=== PATIENT | male | born 1985 | race Caucasian/White ===

== ENCOUNTER 2019-06-13 16:59 | Emergency (ER) | payer SELFPAY ==
[~2019-06-13 16:59] MED LIST: ISOVUE-370 76%-LOCM 1 ML ONE
[2019-06-13] MEDS ORDERED: Ondansetron PF 4 MG/2 ML Vial ONE (17:22)
[2019-06-13 17:31] LABS: #Basophils 0.1 thou/uL (0.0-0.2); #Eosinphils 0.9 thou/uL (0.0-0.7); #Lymphocytes 3.8 thou/uL (1.20-3.40); #Monocytes 0.8 thou/uL (0.11-0.59); %Basophils 1.1 % (0.0-1.0); %Lymphocytes 36.2 % (21.0-51.0); %Monocytes 7.4 % (0.0-10.0); %Neutrophils 47.3 % (42.0-75.0); Hemoglobin 15.6 g/dL (14.0-18.0); Mean Corpuscular HGB CONC 34.3 g/dL (32.0-36.0); Mean Corpuscular Hemoglobin 31.9 pg (27.0-31.0); Mean Platelet Volume 7.8 fL (7.4-10.4); Platelet Count 236 thou/uL (130-400); RBC Distribution Width 12.3 % (11.5-14.5); White Blood Cell (WBC) Count 10.6 thou/uL (4.8-10.8)
[2019-06-13] MEDS ORDERED: Morphine 4 MG/ML VIAL ONE ×2 (17:31→23:05)
--- NOTE | 2019-06-13 17:33 | RAD ---
RADIOGRAPH CHEST 1 VIEW: DATE: 06/13/2019 HISTORY: 33-year-old male with chest pain, palpitations, and dyspnea. FINDINGS: There are no airspace densities, pulmonary edema, pneumothorax, or cardiomegaly. The lateral costophr enic angles are sharp. IMPRESSION: No acute cardiopulmonary findings.
--- NOTE | 2019-06-13 17:49 | CT ---
CT ANGIOGRAM THORAX WITH CONTRAST: (CTA pulmonary angiogram) DATE: 06/13/2019 HISTORY: 33-year-old male with chest pain and dyspnea TECHNIQUE: IV injection of iodinated contrast. Scan acquisition timing attempted to coincide with iodinated contrast bolus reaching maximal density in pulmonary arteries. 3-D MIP reconstructions. FINDINGS: Pulmonary thromboembolism: None. Lungs: No consolidation or edema. Pneumothorax: None. Pleural effusion: None. Thoracic aorta: Ectasia, especially of ascending aorta, with caliber of 4.5 cm, not typical for age 3 5 years. No IV contrast material in the thoracic aorta, and therefore unable to evaluate for thoracic aortic d issection. No cardiomegaly, mediastinal lymphadenopathy, or hilar lymphadenopathy. Trachea and major bronchi: Patent and clear. IMPRESSION: 1. No pulmonary thromboembolism. 2. Evidence for chronic hypertension: Ectasia of ascending thoracic aorta.
[2019-06-13 17:51] LABS: ALT (SGPT) 29 U/L (8-55); AST (SGOT) 18 U/L (5-34); Acetaminophen Less than 6.0 mcg/mL (10.0-30.0); Albumin 4.4 g/dL (3.5-5.0); Alcohol Less than 10 mg/dL (Less than 10); Alkaline Phosphatase 82 U/L (40-150); Anion Gap 19 mmol/L (10-20); BUN (Urea Nitrogen) 9 mg/dL (8.9-20.6); Bilirubin, Total 0.5 mg/dL (0.2-1.2); CK (CPK) 132 U/L (30-200); Calc. Creatinine Clearance 0 mL/min (70-130); Calcium 9.3 mg/dL (7.8-10.44); Carbon Dioxide 16 mmol/L (22-29); Chloride 109 mmol/L (98-107); Estimated GFR-MDRD 63; Globulin 1.9 g/dL (2.4-3.5); Glucose 127 mg/dL (70-105); Lipase 26 U/L (8-78); Potassium 3.8 mmol/L (3.5-5.1); Protein, Total 6.3 g/dL (6.0-8.3); Salicylate Less than 8.0 mg/dL (15.0-30.0); Sodium 140 mmol/L (136-145)
[2019-06-13] MEDS ORDERED: Lorazepam 2 MG/ML VIAL ONE (18:09)
[2019-06-13 21:07] LABS: Troponin I 0.012 ng/mL (< 0.028)
[2019-06-13] MEDS ORDERED: Morphine 2 MG/ML SYRINGE ONE (21:14)
[2019-06-13] MEDS ORDERED: Mag-Al 1200 mg/1200 mg/30 ML UDCUP ONE ×2 (21:24→21:25)
[2019-06-13] MEDS ORDERED: Lidocaine Viscous Sol 2% 15 ml UD Cup ONE ×2 (21:24→21:25)
[2019-06-13] MEDS ORDERED: Pantoprazole 40 MG VIAL ONE (21:35)
[2019-06-13] MEDS ORDERED: Esmolol 2,500 MG/250 ML 250 ML ONE ×2 (22:41→23:50)
[2019-06-13] MEDS ORDERED: Nitroglycerin 50 MG/250 ML BOT 250 ML ONE (22:41)
--- NOTE | 2019-06-13 22:49 | CT ---
CT abdomen with contrast CT pelvis with contrast: DATE: 06/13/2019 Time: 10:22 PM HISTORY: 33-year-old male with severe abdominal pain. Dr. Cordova reported the acute aortic dissection and left renal infarction by telephone to Nikole cerna of the emergency Department at 10:38 PM on 06/13/2019 TECHNIQUE: IV injection of iodinated contrast. Arterial bolus chasing technique. Scan acquisition from top of aortic arch to iliac crests. 3-D MIP reconstructions. FINDINGS: There is dissection of the ascending thoracic aorta. Aortic arch is not included on the images. There is dissection of the descending thoracic aorta. It reaches the junction between the thoracic and abdominal aorta, terminating just to the right of the origin of the celiac and superior mesenteric ar teries. There is mild atherosclerosis, but no aneurysm or dissection, in the abdominal aorta otherwise, or in the common and external and internal iliac arteries. There are very extensive low density hypoperfusion lesions throughout the left renal upper, mid, and lower poles, involving the majority of the volume of the left renal parenchyma consistent with acute infarction. No hydronephrosis. Unremarkable liver, pancreas, or spleen. No adrenal nodule on th e right. Adrenal thickening on the left. No ascites or pneumoperitoneum. No small bowel dilation. The urinary bladder is filled with IV contrast from CT pulmonary angiogram earlier today. The bladder appears normal. No colonic diverticulitis. No abscess within the abdominal cavity or pelvic cavity. Distended gallbladder. IMPRESSION: 1. Acute aortic dissection, Andrew type A, DeBakey type I. 2. Acute infarction of the majority of the volume of the left kidney, presumably due to thromboemboli sm due to the dissection.
[2019-06-13] MEDS ORDERED: niCARdipine 20MG In NaCl 20 MG/200 ML BAG ONE (23:47)
== END 2019-06-14 00:14 | disposition short-term general hospital (02) ==
LOC: ERS 16:59
DX: I71.01 Dissection of thoracic aorta (principal); N28.0 Ischemia and infarction of kidney; I10 Essential (primary) hypertension; F32.9 Major depressive disorder, single episode, unspecified
CPT/HCPCS: 36415; 71045; 71275; 74177; 80053; 80307; 82550; 83690; 83880; 84484; 85025; 93005; 94760; 96361; 96365; 96368; 96372; 96375; 96376; C9113; J0500; J2060; J2270; J2405; Q9966

== ENCOUNTER 2019-08-01 08:54 | Emergency (ER) | payer SELFPAY | END 2019-08-01 11:11 | disposition home or self-care (01) | LOC: ERS 08:54 | DX: Z43.1 Encounter for attention to gastrostomy (principal); E78.5 Hyperlipidemia, unspecified; I10 Essential (primary) hypertension; F17.210 Nicotine dependence, cigarettes, uncomplicated; Z79.899 Other long term (current) drug therapy | CPT/HCPCS: 99282 ==

== ENCOUNTER 2020-07-22 08:38 | Outpatient (CLI) | payer OTHER ==
--- NOTE | 2020-07-22 09:25 | CT ---
CT OF THE ABDOMEN AND PELVIS WITH IV CONTRAST INDICATION: History of ileostomy and aortic dissection COMPARISON: CTA of the chest dated June 13, [address] the abdomen and pelvis with contrast date d June 13, 2019 FINDINGS: ABDOMEN: Lung bases: The lung bases are clear. There is been interval placement of an aortic endograft within the distal thoracic aortic dissection. The endograft extends through the abdominal aorta and into both common iliac arteries. The suspected false lumen of the descending thoracic aorta is now aneurys mal measuring 4.5 cm where previously the descending thoracic aorta measured 3.3 cm. The suprarenal abdominal aorta also containing opacification of the false lumen is slightly more aneurysm measuring 3.6 cm were previously this measured 2.9 cm. The aorta at the renal artery measures 3.5 cm. The false lumen remains opacified within the distal abdominal aorta measuring 2.8 cm. Liver: Small cysts are seen within the right hepatic lobe. Gallbladder: Surgically absent Pancreas: Normal. Adrenal glands: Normal. Spleen: Normal. Kidneys and ureters: There is a lobulated and atrophic appearance of the left kidney consistent with evolutionary changes from multiple segmental infarcts to the left kidney seen on the prior exam. The right kidney has a normal CT appearance. Vasculature: As above Lymph nodes:No lymphadenopathy. Free fluid in abdomen:No free fluid is evident. PELVIS: Small and large bowel: There has been an interval partial colectomy with a long Mahmood's pouch proje cting up to the level of the distal transverse colon. There is a right upper quadrant abdominal wall ileostomy with small bowel seen within a parastomal hernia. There is no evidence of obstruction. Appendix:Surgically absent Bladder: Normal. Rectal and perirectal soft tissues:Normal. Reproductive structures: Normal. Free fluid in pelvis: No free fluid is evident. Lymphadenopathy pelvis: No lymphadenopathy is evident. Osseous structures: No acute osseous abnormality. No destructive osteolytic or osteoblastic lesion i s identified. Soft tissues:Normal. IMPRESSION: 1. Interval placement of an aortic endograft stent, seen within the distal thoracic aorta through the common iliac arteries. 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 Referral of this finding to vas cular surgery is recommended. 2. Interval partial colectomy and establishment of a right upper quadrant end ileostomy. There is a p arastomal hernia containing unobstructed loops of small bowel. 3. Evolutionary changes involving the multiple segmental infarct involving the left kidney. The left kidney is now atrophic with a lobulated contour.
[2020-07-22] MEDS ORDERED: Iopamidol-370 76% 500 ML 1 ML ONE (11:30)
== END 2020-07-22 08:39 | disposition home or self-care (01) ==
LOC: BICCT 08:38
PROVIDERS: ATTEND Specialist
DX: Z48.815 Encounter for surgical aftercare following surgery on the digestive system (principal); Z93.2 Ileostomy status
CPT/HCPCS: 74177; Q9967

== ENCOUNTER 2020-12-01 11:45 | Inpatient (IN) | payer OTHER ==
[2020-12-06] MEDS ORDERED: Ketorolac Tromethamine 30 MG/ML VIAL ONE (08:01)
[2020-12-06] MEDS ORDERED: cefOXitin Sodium/Dextrose 2 GM/50 ML BAG ONE (08:02)
[2020-12-06] MEDS ORDERED: Acetaminophen 500 MG TAB ONE ×2 (08:02)
[2020-12-06] MEDS ORDERED: Dexamethasone 4 mg/ml Vial ONE (08:10)
[2020-12-06] MEDS ORDERED: Midazolam HCl 2 mg/2 ml Vial ONE (08:10)
[2020-12-06] MEDS ORDERED: Fentanyl 100 MCG/2 ML VIAL ONE (08:10)
[2020-12-06] MEDS ORDERED: Acetaminophen 500 MG TAB PO PRN (09:31)
[2020-12-06] MEDS ORDERED: Hydrocerin (Eucerin) Cream 120 gm Jar TOP PRN (09:45)
[2020-12-06] MEDS ORDERED: Ondansetron PF 4 MG/2 ML Vial IVP PRN (09:45)
[2020-12-06] MEDS ORDERED: diphenhydrAMINE 50 MG/ML VIAL IM PRN (09:45)
[2020-12-06] MEDS ORDERED: diphenhydrAMINE 25 MG CAP PO PRN (09:45)
[2020-12-06] MEDS ORDERED: Promethazine HCl 25 MG/ML VIAL IM PRN ×3 (09:45→14:39)
[2020-12-06] MEDS ORDERED: XYLOCAINE 2%-EPI 1:100,000 20 ML VIAL ONE (09:45)
[2020-12-06] MEDS ORDERED: Zolpidem Tartrate 5 MG TAB PO PRN (09:45)
[2020-12-06] MEDS ORDERED: Ketorolac Tromethamine 30 MG/ML VIAL IVP PRN (09:45)
[2020-12-06] MEDS ORDERED: Bupivacaine 0.25% 10 ML VIAL EPIDURAL PRN (09:45)
[2020-12-06] MEDS ORDERED: Promethazine HCl 25 MG SUPP PR PRN (09:45)
[2020-12-06] MEDS ORDERED: Naloxone HCl 0.4 mg/ml Vial IV PRN (09:45)
[2020-12-06] MEDS ORDERED: HYDROcodone/Acetaminophen 5/325 mg Tablet PO PRN (09:45)
[2020-12-06] MEDS ORDERED: Naloxone HCl 0.4 mg/ml Vial IVP PRN (09:45)
[2020-12-06] MEDS ORDERED: traMADol HCl 50 MG TAB PO PRN (09:45)
[2020-12-06] MEDS ORDERED: Fentanyl 250 MCG/5 ML VIAL ONE (09:46)
[2020-12-06] MEDS ORDERED: Lidocaine 2% Jelly 5 ML TUBE ONE (10:02)
[2020-12-06] MEDS ORDERED: Dexamethasone 20 MG/5 ML VIAL ONE (10:58)
[2020-12-06] MEDS ORDERED: Ondansetron PF 4 MG/2 ML Vial ONE (10:58)
[2020-12-06] MEDS ORDERED: Glycopyrrolate 0.2 MG/ML 5 ML SYRINGE ONE (10:58)
[2020-12-06] MEDS ORDERED: Lidocaine 1.5% w/Epi 1:200K 30 ML VIAL (Epid Use) ONE (10:58)
[2020-12-06] MEDS ORDERED: Succinylcholine 200 MG/10 ml SYRINGE FS ONE (10:58)
[2020-12-06] MEDS ORDERED: PROPOFOL 200 MG/20 ML VIAL ONE (10:58)
[2020-12-06] MEDS ORDERED: Lidocaine 1% PF 5 ML VIAL ONE (10:58)
[2020-12-06] MEDS ORDERED: ceFOXitin 1 GM VIAL ONE (11:53)
[2020-12-06] MEDS ORDERED: Ropivacaine 0.2% HCl/PF 20 ML ONE (12:18)
[2020-12-06] MEDS ORDERED: Meperidine HCl/PF 25 MG/ML VIAL SLOW IVP PRN (13:54)
[2020-12-06] MEDS ORDERED: Promethazine HCl 25 MG/ML VIAL SLOW IVP PRN (13:54)
[2020-12-06] MEDS ORDERED: Ondansetron HCl/PF 4 MG/2 ML Vial IVP PRN (13:54)
[2020-12-06] MEDS ORDERED: Promethazine HCl 25 MG/ML VIAL ONE (14:09)
[2020-12-06] MEDS ORDERED: AFRIN NASAL MIST 15 ML BOT ONE (14:13)
[2020-12-06] MEDS ORDERED: D5 1/2 NS w/20 mEq KCL 1,000 ML ONE (14:38)
[2020-12-06] MEDS ORDERED: hydrALAZINE 20 MG/ML VIAL SLOW IVP PRN (14:39)
[2020-12-06] MEDS: D5 1/2 NS w/20 mEq KCL 1,000 ML IV SCH ×2 (15:36→23:45)
[2020-12-06] MEDS ORDERED: Oxymetazoline HCl 0.05% (30 ML BOT) NS PRN (15:37)
[2020-12-06] MEDS ORDERED: Sodium Chloride 0.9% 1,000 ML IV SCH (20:00)
[2020-12-06 20:18] LABS: Hemoglobin 14.3 g/dL (14.0-18.0); Mean Corpuscular HGB CONC 34.1 g/dL (32.0-36.0); Mean Corpuscular Hemoglobin 31.6 pg (27.0-31.0); Mean Corpuscular Volume 92.8 fL (78.0-98.0); Mean Platelet Volume 7.4 fL (7.4-10.4); Platelet Count 342 thou/uL (130-400); RBC Distribution Width 12.2 % (11.5-14.5); Red Blood Cell (RBC) Count 4.53 mill/uL (4.70-6.10); White Blood Cell (WBC) Count 18.7 thou/uL (4.8-10.8)
[2020-12-06 20:33] LABS: Band 23 % (5-11); Lymphocytes 1 % (21-51); MDiff Complete? YES; Monocytes 7 % (0-10); Neutrophil 69 % (42-75); Platelet Morphology Comment Appears Adequate; RBC Morphology Normal
[2020-12-06 20:36] LABS: Anion Gap 14 mmol/L (10-20); BUN (Urea Nitrogen) 19 mg/dL (8.9-20.6); Calc. Creatinine Clearance 117 mL/min (70-130); Calcium 8.3 mg/dL (7.8-10.44); Carbon Dioxide 19 mmol/L (22-29); Chloride 108 mmol/L (98-107); Glucose 170 mg/dL (70-105); Potassium 5.1 mmol/L (3.5-5.1); Sodium 136 mmol/L (136-145)
[2020-12-06] MEDS: Enoxaparin Sodium 40 MG/0.4 ML SYRINGE SC SCH (20:54)
[2020-12-06] MEDS: Atorvastatin Calcium 10 MG TAB PO SCH (20:55)
[2020-12-06] MEDS: Famotidine/PF 20 mg/2ml Vial SLOW IVP SCH (20:55)
[2020-12-06] MEDS: Carvedilol 25 MG TAB PO SCH (20:55)
[2020-12-06] MEDS ORDERED: Lactated Ringer's 1,000 ML IV SCH (21:15)
[2020-12-06] MEDS: Famotidine 20 MG TAB PO SCH (23:42)
--- NOTE | 2020-12-07 00:29 | OP ---
DATE OF PROCEDURE: 12/06/2020 PREOPERATIVE DIAGNOSES: Undesired ileostomy, very large peristomal hernia, morbid obesity. POSTOPERATIVE DIAGNOSES: Undesired ileostomy, very large peristomal hernia, morbid obesity with extensive intraabdominal adhesions. OPERATION PERFORMED: Exploratory laparotomy with extensive lysis of adhesions (requiring over an hour), reversal of ileostomy with new ileocolostomy creation in the left upper abdomen and short-segment removal of both small intestine and colon, difficult layered repair of a large peristomal hernia in the right abdomen with placement of a subcutaneous drain, placement of a final drain in this midline incision and closure of an incisional periumbilical hernia during closure of the midline wound. INDICATIONS: The patient is an obese 35-year-old white male. He has had a right-sided loop ileostomy from a surgery about a year ago when he had an aortic dissection which required emergency abdominal surgery as well. He is returned to the operating room at this time for reversal of his ileostomy and repair of the giant peristomal hernia in his right abdomen. CT scan documents that most of his small intestine protruded into the peristomal hernia. DESCRIPTION OF OPERATION: Informed consent was obtained. Patient was taken to the operating room, where general endotracheal anesthesia was obtained with patient in supine position. An epidural catheter had been placed preoperatively per Anesthesia. Abdomen was trimmed of hair. The ostomy was closed in a transverse fashion with a running locking suture of 0 silk. The abdomen was then prepped with ChloraPrep and draped in sterile fashion. A midline abdominal incision was created and the prior widened scar was excised. Dissection was carried down into the abdominal cavity with electrocautery. There was noted to be a substantial hernia underlying the umbilicus measuring about 2.5 to 3 cm in diameter. There were extensive adhesions to the anterior abdominal wall bilaterally. I took great effort to very carefully dissect all the adhesions off the anterior abdominal wall. These included both omental and small bowel adhesions. After I had dissected most of these, I turned my attention to the ileostomy. I created an elliptical incision around this and carefully dissected this small bowel away from the skin and subcutaneous tissue. As mentioned, there was a huge peristomal hernia. There were extensive adhesions within this hernia sac. All of these adhesions were carefully mobilized well. I eventually mobilized all of the small bowel such that I could run the small bowel from the ligament of Treitz to the former ileostomy site. The ileostomy site had been a double-lumen ostomy and the distal aspect of the stoma appeared to have been closed several centimeters distal. When this was fully dissected, the hernia sac of the peristomal hernia measured about 13 cm transversely by about 12 cm in a sagittal plane. Attention was then turned to the left abdomen. I was able to identify the Prolene sutures marking the stapled end of the divided colon with unaffected long Martin's pouch in the right upper quadrant. This appeared to likely be distal transverse colon. I mobilized the distal transverse colon as well as what remained of the splenic flexure and the left colon. This segment of colon was relatively small and decompressed. It appeared to be filled with thickened inspissated stool. I created a double-stapled anastomosis in a [id number] fashion between the small bowel just proximal to the ileostomy and the colon just distal to the staple line. The second fire of the stapler closed the defect and divided these short segments of small bowel and colon that were removed. The anastomosis was buttressed with several interrupted sutures of 3-0 silk. As the mesenteric defect was huge, I made no attempt to close this. The instruments used while the bowel was open had been segregated and were passed off the field. The abdominal cavity was then irrigated with 3 L of warm saline and all irrigant was aspirated. Attention was turned to the peristomal hernia site. I was able to dissect the muscular tissue in 2 layers. It appeared the ostomy opening was likely primarily through the rectus muscle. I closed the posterior layer using a running suture of looped #1 PDS. I then closed the anterior layer using a separate running suture of PDS. The defect was closed in a vertical fashion on both layers. I then excised the entire hernia sac. Finally, I placed a #19 round fluted drain within the wound, which I brought out inferiorly and secured with 3-0 nylon suture. I opened the skin incisions further as the skin was very thinned out overlying much of the hernia sac and especially laterally. I then closed the subcutaneous fatty tissue with a running suture of 3-0 Vicryl and approximated the skin edges with skin martha. Finally, attention was turned to the midline wound. The fascial edges were dissected somewhat, especially in the area of the prior periumbilical hernia. The fascia was closed with a running suture of looped #1 PDS, started from the top and the bottom and tied in the middle. Seprafilm had been placed underneath the fascia. Due to the very thick layer of subcutaneous fat, I placed a #19 round fluted drain, which I brought out inferiorly to the left and secured with a 3-0 nylon suture. The remainder of the wound was closed with a layer of running 3-0 Vicryl followed by skin martha. Dry gauze dressing was placed over both incisions as well as the drain exit sites. There were no complications. Blood loss had been minimal. The patient tolerated the procedure well and was taken in stable condition to the recovery room. Job ID: [id number]
[2020-12-07] MEDS: fentaNYL Citrate/PF 500 MCG, Bupivacaine 10 ML in Sodium Chloride 0.9% 80 ML EPIDURAL SCH ×2 (02:32→15:51)
[2020-12-07 05:35] LABS: #Lymphocytes 1.1 thou/uL (1.20-3.40); #Monocytes 1.5 thou/uL (0.11-0.59); #Neutrophils 11.9 thou/uL (1.40-6.50); %Basophils 0.1 % (0.0-1.0); %Eosinophils 0.1 % (0.0-10.0); %Lymphocytes 7.7 % (21.0-51.0); %Monocytes 10.4 % (0.0-10.0); %Neutrophils 81.7 % (42.0-75.0); Hemoglobin 11.4 g/dL (14.0-18.0); Mean Corpuscular Hemoglobin 29.3 pg (27.0-31.0); Mean Corpuscular Volume 94.4 fL (78.0-98.0); Mean Platelet Volume 7.7 fL (7.4-10.4); Platelet Count 268 thou/uL (130-400); RBC Distribution Width 12.1 % (11.5-14.5); Red Blood Cell (RBC) Count 3.88 mill/uL (4.70-6.10); White Blood Cell (WBC) Count 14.6 thou/uL (4.8-10.8)
[2020-12-07 05:50] LABS: Anion Gap 13 mmol/L (10-20); BUN (Urea Nitrogen) 27 mg/dL (8.9-20.6); Calc. Creatinine Clearance 73 mL/min (70-130); Calcium 8.1 mg/dL (7.8-10.44); Carbon Dioxide 19 mmol/L (22-29); Chloride 107 mmol/L (98-107); Glucose 138 mg/dL (70-105); Potassium 5.5 mmol/L (3.5-5.1); Sodium 133 mmol/L (136-145)
[2020-12-07] MEDS ORDERED: Dextrose 5%-Lactated Ringers 1,000 ML IV SCH (06:15)
[2020-12-07] MEDS ORDERED: Lactated Ringer's 1,000 ML IV SCH (06:15)
[2020-12-07] MEDS: D5 1/2 NS w/20 mEq KCL 1,000 ML IV SCH (06:32)
--- NOTE | 2020-12-07 08:06 | PDOC.GSPN ---
Surgery Progress Note: Subj - Subjective Narrative: Mr. Carrillo is a 35 year old male who is POD #1 from open ileostomy reversal w/ new ileocolostomy creation and repair of large peristomal hernia. The patient has had the R sided loop ileostomy for about 1 year now following emergent abdominal surgery for aortic dissection and requested reversal of the ileostomy. Overnight, the patient reports experiencing slight dizziness and tachycarida. His pulse went up to 110 and his BP went down to 82/54 at one point last night. He was given 3 boluses of NS. His BP today has improved to 98/63 with pulse 87. The patient denies any fever, chills, nausea, vomiting, SOB, or chest pain. He reports his abdominal pain is tolerable. He is ambulating in the hallways. Of note, the patient continues to experience pruritus. He has not yet received the eucerin cream. Surgery Progress Note: Obj - Vital signs Vital signs: Vital Signs - Most Recent Temp Pulse Resp BP Pulse Ox 98.4 F 87 16 98/63 100 12/07/20 03:08 12/07/20 06:17 12/07/20 03:08 12/07/20 06:17 12/07/20 05:00 - Physical Exam General: no distress Cardiovascular: regular rate and rhythm Respiratory: clear to auscultation, normal expansion, normal respiratory effort Abdomen: soft, positive bowel sounds, appropriately tender Wound: dressing clean,dry,intact, drainage (BANDAR drain serosanguinous output overnight - L: 40 mL, R: 250 mL) Surgery Progress Note: Results - Labs Result Diagrams: 12/07/20 05:03 12/07/20 05:03 Lab results: Laboratory Results - last 12 hr 12/06/20 12/06/20 12/07/20 19:53 19:53 05:03 WBC 18.7 H RBC 4.53 L Hgb 14.3 Hct 42.0 MCV 92.8 MCH 31.6 H MCHC 34.1 RDW 12.2 Plt Count 342 MPV 7.4 Neutrophils % Neutrophils % (Manual) 69 Band Neuts % (Manual) 23 H Lymphocytes % Lymphocytes % (Manual) 1 L Monocytes % Monocytes % (Manual) 7 Eosinophils % Basophils % Neutrophils # Lymphocytes # Not Reportable Monocytes # Eosinophils # Basophils # Plt Morphology Comment Appears Adequate RBC Morph Comment Normal Sodium 136 133 L Potassium 5.1 5.5 H Chloride 108 H 107 Carbon Dioxide 19 L 19 L Anion Gap 14 13 BUN 19 27 H Creatinine 1.47 H 2.36 H Estimated GFR (MDRD) 54 31 Glucose 170 H 138 H Calcium 8.3 8.1 12/07/20 05:03 WBC 14.6 H RBC 3.88 L Hgb 11.4 L Hct 36.6 L MCV 94.4 MCH 29.3 MCHC 31.0 L RDW 12.1 Plt Count 268 MPV 7.7 Neutrophils % 81.7 H Neutrophils % (Manual) Band Neuts % (Manual) Lymphocytes % 7.7 L Lymphocytes % (Manual) Monocytes % 10.4 H Monocytes % (Manual) Eosinophils % 0.1 Basophils % 0.1 Neutrophils # 11.9 H Lymphocytes # 1.1 L Monocytes # 1.5 H Eosinophils # 0.0 Basophils # 0.0 Plt Morphology Comment RBC Morph Comment Sodium Potassium Chloride Carbon Dioxide Anion Gap BUN Creatinine Estimated GFR (MDRD) Glucose Calcium Surgery Progress Note: A/P - Problem (1) Parastomal hernia Current Visit: Yes Code(s): K43.5 - PARASTOMAL HERNIA WITHOUT OBSTRUCTION OR GANGRENE Status: Acute (2) Status post reversal of ileostomy Current Visit: Yes Code(s): Z98.890 - OTHER SPECIFIED POSTPROCEDURAL STATES Status: Acute - Plan Plan: Mr. Carrillo is a 35 year old M who is POD #1 from open ileostomy reversal and repair of large peristomal hernia. The patient was tachycardic and hypotensive overnight. His vitals have improved after 3 boluses NS. He remains on maintenance fluid of 150 mL/hr. He reports he is doing well overall and states his abdominal pain is currently manageable. He has not yet had bowel movement or flatus. Of note, he has had diminished urine output overnight. He is ambulating well with no issues. He denies any fever, chills, n/v, SOB, or chest pain. He does continue to experience pruritus Plan: 1. Strict I/Os 2. Notify if urine output <30 mL/hr 3. Consider going up on maintenance fluids to 200 mL/hr 4. Encourage ambulation and use of incentive spirometry 5. D/C nasal cannula 6. Hold home BP meds this am 7. Eucerin cream has been ordered, pharmacy contacted 8. Remain NPO
[2020-12-07] MEDS: Aspirin 81 mg Enteric Coated Tablet PO SCH (08:10)
[2020-12-07] MEDS: Famotidine/PF 20 mg/2ml Vial SLOW IVP SCH ×2 (08:10→20:12)
[2020-12-07] MEDS: Dextrose 5%-Lactated Ringers 1,000 ML IV SCH ×4 (08:19→22:25)
[2020-12-07] MEDS: Famotidine 20 MG TAB PO SCH ×2 (08:19→20:12)
[2020-12-07] MEDS: NIFEdipine XL 30 MG TAB PO SCH (08:19)
[2020-12-07] MEDS: Carvedilol 25 MG TAB PO SCH ×2 (08:19→20:12)
--- NOTE | 2020-12-07 12:55 | PQF ---
CLINICAL DOCUMENTATION CLARIFICATION FORM: Dear Dr. DENISE GALLEGOS Date: 12-07-20 Please exercise your independent, professional judgment in responding to the clarification form. Clinical indicators are provided on the bottom of this form for your review. Please check appropriate box(es): [ x ] Acute Renal Failure (ARF) / Acute Kidney Injury (BRIANNA) [ ] Insignificant Lab Values [ ] Other diagnosis [ ] Unable to determine In addition, please specify: Present on Admission (POA): [ ] Yes [ x] No [ ] Unable to determine For continuity of documentation, please document condition throughout progress notes and discharge summary. Thank You. To be completed by CDI/Coding staff for physician review: CLINICAL INDICATORS - SIGNS / SYMPTOMS / LABS / RESULTS AND LOCATION IN MR: GFR: 12-06-20: 54 12-07-20: 31 CREATININE: 12-06-20: 1.47 12-07-20: 2.36 BUN: 12-06-20: 19 12-07-20: 27 RISK FACTORS / RESULTS AND LOCATION IN MR: MAR: 12-06-20: COREG, PROCARDIA, SURGERY EXPLORATORY LAPAROTOMY WITH EXTENSIVE LYSIS OF ADHESIONS, REVERSAL OF ILEOSTOMY WITH NEW ILEOCOLOSTOMY CREATION IN THE L UPPER ABDOMEN, DIFFICULT LAYERED REPAIR OF A LARGE PERISTOMAL HERNIA IN THE RIGHT ABDOMEN WITH PLACEMENT OF A SQ DRAIN, PLACEMENT OF A FINAL DRAIN IN THE MIDLINE INCISION AND CLOSURE OF AN INCISIONAL PERIUMBILICAL HERNIA DURING CLOSURE OF THE MIDLINE WOUND. TREATMENTS / RESULTS AND LOCATION IN MR: MAR: 12-07-20: DEXTROSE 5%-LACTATED RINGERS IVF, 12-06-20: D5 W KCL [employer] Guidelines for CKD Staging Stage I Kidney damage with normal or increased GFR GFR > 90 Stage II Kidney damage with mildly decreased GFR GFR 60-89 Stage III Kidney damage with moderately decreased GFR GFR 30-59 Stage IV Kidney damage with severely decreased GFR GFR 16-29 Stage V Kidney failure GFR<15 ESRD End Stage Renal Disease On dialysis Acute Renal Failure/Acute Kidney Failure defined as: Increases in SCr by (>) 0.3 mg/dl within 48 hours OR- Increases in SCr by (>) 1.5 times baseline, known or presumed to have occurred within the prior 7 days OR- Urine volume < 0.5 ml/kg/hour for 6 hours (KDIGO supplement 2012 for RIFLE/ERNIE criteria) CDS Signature: Christina Reyes Phone #: [phone] Date: 12-07-20 This is a permanent part of the Medical Record MTDD
[2020-12-07 12:56] LABS: #Lymphocytes 1.4 thou/uL (1.20-3.40); #Monocytes 1.6 thou/uL (0.11-0.59); %Basophils 0.4 % (0.0-1.0); %Eosinophils 0.1 % (0.0-10.0); %Lymphocytes 10.4 % (21.0-51.0); %Monocytes 12.6 % (0.0-10.0); %Neutrophils 76.6 % (42.0-75.0); Hemoglobin 10.2 g/dL (14.0-18.0); Mean Corpuscular HGB CONC 34.5 g/dL (32.0-36.0); Mean Corpuscular Hemoglobin 32.3 pg (27.0-31.0); Mean Corpuscular Volume 93.6 fL (78.0-98.0); Mean Platelet Volume 7.3 fL (7.4-10.4); Platelet Count 226 thou/uL (130-400); RBC Distribution Width 12.1 % (11.5-14.5); Red Blood Cell (RBC) Count 3.16 mill/uL (4.70-6.10); White Blood Cell (WBC) Count 13.1 thou/uL (4.8-10.8)
[2020-12-07 13:16] LABS: Anion Gap 13 mmol/L (10-20); BUN (Urea Nitrogen) 28 mg/dL (8.9-20.6); Calc. Creatinine Clearance 83 mL/min (70-130); Carbon Dioxide 19 mmol/L (22-29); Chloride 107 mmol/L (98-107); Glucose 114 mg/dL (70-105); Potassium 4.8 mmol/L (3.5-5.1); Sodium 134 mmol/L (136-145)
[2020-12-07] MEDS: traMADol HCl 50 MG TAB PO PRN (17:15)
[2020-12-07] MEDS: Enoxaparin Sodium 40 MG/0.4 ML SYRINGE SC SCH (20:11)
[2020-12-07] MEDS: Atorvastatin Calcium 10 MG TAB PO SCH (20:12)
[2020-12-07] MEDS: HYDROcodone/Acetaminophen 5/325 mg Tablet PO PRN (22:26)
[2020-12-08] MEDS: fentaNYL Citrate/PF 500 MCG, Bupivacaine 10 ML in Sodium Chloride 0.9% 80 ML EPIDURAL SCH ×2 (03:56→16:28)
[2020-12-08] MEDS: Dextrose 5%-Lactated Ringers 1,000 ML IV SCH (03:56)
[2020-12-08 05:51] LABS: #Eosinphils 0.1 thou/uL (0.0-0.7); #Monocytes 1.2 thou/uL (0.11-0.59); #Neutrophils 9.8 thou/uL (1.40-6.50); %Basophils 0.4 % (0.0-1.0); %Eosinophils 0.7 % (0.0-10.0); %Lymphocytes 8.2 % (21.0-51.0); %Monocytes 9.6 % (0.0-10.0); %Neutrophils 81.1 % (42.0-75.0); Mean Corpuscular HGB CONC 33.8 g/dL (32.0-36.0); Mean Corpuscular Hemoglobin 31.9 pg (27.0-31.0); Mean Corpuscular Volume 94.2 fL (78.0-98.0); Mean Platelet Volume 7.8 fL (7.4-10.4); Platelet Count 209 thou/uL (130-400); Red Blood Cell (RBC) Count 2.81 mill/uL (4.70-6.10); White Blood Cell (WBC) Count 12.1 thou/uL (4.8-10.8)
[2020-12-08 06:14] LABS: Anion Gap 11 mmol/L (10-20); BUN (Urea Nitrogen) 26 mg/dL (8.9-20.6); Calc. Creatinine Clearance 109 mL/min (70-130); Calcium 8.3 mg/dL (7.8-10.44); Carbon Dioxide 20 mmol/L (22-29); Chloride 105 mmol/L (98-107); Glucose 117 mg/dL (70-105); Potassium 4.4 mmol/L (3.5-5.1); Sodium 132 mmol/L (136-145)
[2020-12-08] MEDS ORDERED: Sodium Chloride 0.9% 1,000 ML IV SCH (06:30)
--- NOTE | 2020-12-08 06:39 | PDOC.GSPN ---
Surgery Progress Note: Subj - Subjective Narrative: 35 y.o male POD #2 s/p reversal of ileostomy with new ileocolostomy creation, repair of peristomal hernia and adhesion lysis. Patient was awake and reported feeling well this morning, his pain is 4/10 and localized to the midline incision and R/L sides of the abdomen. Overnight, he experienced 1 episode of dizziness when ambulating that improved with sitting. Denies syncope. He also used nasal cannula due to low O2 sats. He is NPO but sips water (630 mL in last 24 hours). His Cruz was pulled this morning, but he produced 850 mL in 24 hours (35 cc/hr). Drains are producing serosanguinous fluid. He is ambulating with the walking program and several times on his own without difficulty. In fact, he endorses improvement in pain level with ambulation. Denies gas or stool per rectum. Denies SOB, chest pain, n/v, subj. fever/chills. Surgery Progress Note: Obj - Vital signs Vital signs: Vital Signs - Most Recent Temp Pulse Resp BP Pulse Ox 98.1 F 93 18 105/45 L 94 L 12/08/20 03:36 12/08/20 03:36 12/08/20 03:36 12/08/20 03:36 12/08/20 03:36 Afebrile. Hypotensive overnight @ 2230: 95/59, and again this mornin/45. Tachycardic overnight @ 2230: 104 bpm. Used NC from 1999 to 399 this morn due to O2 sats ~ 92% - Physical Exam General: no distress, moderate pain Cardiovascular: regular rate and rhythm Respiratory: clear to auscultation, normal respiratory effort Abdomen: soft, decreased bowel sounds, appropriately tender. negative: distended, guarding Psychiatric: speech is normal Wound: dressing clean,dry,intact, drainage (R BANDAR drain: 85 mL of serosanguinous fluid L BANDAR drain: 30 mL of serosanguinous fluid) Surgery Progress Note: Results - Labs Result Diagrams: 12/08/20 05:23 12/08/20 05:23 Lab results: Laboratory Results - last 12 hr 12/08/20 12/08/20 05:23 05:23 WBC 12.1 H RBC 2.81 L Hgb 9.0 L Hct 26.5 L MCV 94.2 MCH 31.9 H MCHC 33.8 RDW 12.0 Plt Count 209 MPV 7.8 Neutrophils % 81.1 H Lymphocytes % 8.2 L Monocytes % 9.6 Eosinophils % 0.7 Basophils % 0.4 Neutrophils # 9.8 H Lymphocytes # 1.0 L Monocytes # 1.2 H Eosinophils # 0.1 Basophils # 0.0 Sodium 132 L Potassium 4.4 Chloride 105 Carbon Dioxide 20 L Anion Gap 11 BUN 26 H Creatinine 1.58 H Estimated GFR (MDRD) 50 Glucose 117 H Calcium 8.3 WBC: trending down from 13.1 yday to 12.1 this morn, predominantly neutrophils Hgb: trending down from 10.2 yday to 9.0 this morn Na: hyponatremia since yday (134) and today (132) Low bicarb of ~20 BUN improvin yday to 26 this morn Cr improvin.08 yday to 1.58 today GFR improved from 36 yday to 50 today Hyperglycemia: 114, 117 Hyponatremia and anemia likely dilutional due to maintenance fluids. Kidney fxn improving. Surgery Progress Note: A/P - Plan Plan: 35 y.o male POD #2 s/p reversal of ileostomy with new ileocolostomy creation, repair of peristomal hernia and adhesion lysis. Patient's kidney function is improving (GFR 50). He continues to have episodic hypotension and tachycardia with dips in O2 sats. Overall, his pain appears to be well managed, but d/c pending bowel recovery. 1. Pain: continue analgesics as ordered 2. Diet: consider clear liquid diet 3. BRIANNA: continue with D5 LR at 200 cc/h, strict I/Os 4. VTE prophylaxis: continue Lovenox qd, encouraged ambulation
[2020-12-08] MEDS: Dextrose 5 % And 0.9 % NaCl 1,000 ML IV SCH ×3 (07:02→18:26)
[2020-12-08] MEDS: Famotidine/PF 20 mg/2ml Vial SLOW IVP SCH ×2 (09:05→21:35)
[2020-12-08] MEDS: Famotidine 20 MG TAB PO SCH ×2 (09:05→21:34)
[2020-12-08] MEDS: Carvedilol 25 MG TAB PO SCH (09:05)
[2020-12-08] MEDS: Aspirin 81 mg Enteric Coated Tablet PO SCH (09:05)
[2020-12-08] MEDS: HYDROcodone/Acetaminophen 5/325 mg Tablet PO PRN (12:14)
[2020-12-08] MEDS: traMADol HCl 50 MG TAB PO PRN (21:34)
[2020-12-08] MEDS: Atorvastatin Calcium 10 MG TAB PO SCH (21:34)
[2020-12-08] MEDS: Enoxaparin Sodium 40 MG/0.4 ML SYRINGE SC SCH (21:34)
[2020-12-09] MEDS: traMADol HCl 50 MG TAB PO PRN (03:18)
[2020-12-09] MEDS: Dextrose 5 % And 0.9 % NaCl 1,000 ML IV SCH ×3 (03:19→15:40)
[2020-12-09] MEDS: fentaNYL Citrate/PF 500 MCG, Bupivacaine 10 ML in Sodium Chloride 0.9% 80 ML EPIDURAL SCH ×2 (05:14→18:05)
[2020-12-09 05:15] LABS: Anion Gap 9 mmol/L (10-20); BUN (Urea Nitrogen) 20 mg/dL (8.9-20.6); Calc. Creatinine Clearance 140 mL/min (70-130); Calcium 8.3 mg/dL (7.8-10.44); Carbon Dioxide 23 mmol/L (22-29); Chloride 104 mmol/L (98-107); Glucose 115 mg/dL (70-105); Potassium 4.3 mmol/L (3.5-5.1); Sodium 132 mmol/L (136-145)
[2020-12-09 05:23] LABS: #Eosinphils 0.2 thou/uL (0.0-0.7); #Monocytes 0.8 thou/uL (0.11-0.59); #Neutrophils 5.7 thou/uL (1.40-6.50); %Basophils 0.5 % (0.0-1.0); %Eosinophils 2.7 % (0.0-10.0); %Lymphocytes 13.1 % (21.0-51.0); %Monocytes 10.1 % (0.0-10.0); %Neutrophils 73.5 % (42.0-75.0); Hemoglobin 8.5 g/dL (14.0-18.0); Mean Corpuscular HGB CONC 35.9 g/dL (32.0-36.0); Mean Corpuscular Volume 94.9 fL (78.0-98.0); Mean Platelet Volume 7.8 fL (7.4-10.4); Platelet Count 221 thou/uL (130-400); RBC Distribution Width 12.2 % (11.5-14.5); White Blood Cell (WBC) Count 7.8 thou/uL (4.8-10.8)
--- NOTE | 2020-12-09 08:13 | PDOC.GSPN ---
Surgery Progress Note: Subj - Subjective Patient reports: nausea, no bowel movement, no flatus, still having pain Narrative: Mr. Carrillo is a 35 year old male who is POD #3 for reversal of ileostomy with new ileocolostomy creation, repair of peristomal hernia, and adhesion lysis. Patient stated he had "epic" pain last night that he rated as a 9 out of 10. A epidural catheter was placed and the patient was given fentanyl which he stated brought his pain down to a 4 or 5 out of 10. Movement makes the pain worse, but when he sits still the pain decreases. Pain is located on the incision sites and on the R and L side of the abdomen. He noted he was unable to get much sleep last night due to the pain. He endorsed being able to ambulate, but noted he only ambulated a short distance this morning due to pain. He stated he has been tolerating his clear liquid diet, but endorsed some nausea. He denied any vomitting or diarrhea. He noted no bowel movements or flatus. He did endorse mild dizziness, congestion, and cough. He denied any wheezing, chills, or headache. Patient noted he had been nervous to drink fluids because he felt he was not urinating much. This morning he stated he urinated and the contained showed 350 mls of tea colored urine. His L BANDAR drain had 35 mls and R BANDAR drain had 75 mls of serosanguineous fluid. Surgery Progress Note: Obj - Vital signs Vital signs: Vital Signs - Most Recent Temp Pulse Resp BP Pulse Ox 98.1 F 95 18 112/63 88 L 12/09/20 03:11 12/09/20 03:11 12/09/20 03:11 12/09/20 03:11 12/09/20 03:11 - Physical Exam General: well developed, well nourished Cardiovascular: regular rate and rhythm Respiratory: clear to auscultation, normal respiratory effort Abdomen: decreased bowel sounds, tender Psychiatric: memory intact, oriented to time, oriented to person, oriented to place Wound: dressing clean,dry,intact, healing well Surgery Progress Note: Results - Labs Result Diagrams: 12/09/20 04:35 12/09/20 04:35 Lab results: Laboratory Results - last 12 hr 12/09/20 12/09/20 04:35 04:35 WBC 7.8 RBC 2.50 L Hgb 8.5 L Hct 23.7 L MCV 94.9 MCH 34.0 H MCHC 35.9 RDW 12.2 Plt Count 221 MPV 7.8 Neutrophils % 73.5 Lymphocytes % 13.1 L Monocytes % 10.1 H Eosinophils % 2.7 Basophils % 0.5 Neutrophils # 5.7 Lymphocytes # 1.0 L Monocytes # 0.8 H Eosinophils # 0.2 Basophils # 0.0 Sodium 132 L Potassium 4.3 Chloride 104 Carbon Dioxide 23 Anion Gap 9 L BUN 20 Creatinine 1.23 Estimated GFR (MDRD) 66 Glucose 115 H Calcium 8.3 Surgery Progress Note: A/P - Plan Plan: Mr. Carrillo is a 35 year old male who is POD #3 for reversal of ileostomy with creation of new ileocolostomy, repair of peristomal hernia, and adhesion lysis. Patient does not appear to be in acute distress, but reported significant pain. Kidney function continues to improve: GFR is up to 66 and Cr has decreased to 1.23. -Pain: continue to monitor patients pain level and control with fentanyl, [place], or acetaminophen -BRIANNA: patient's lab values are improving, continue to monitor GFR, Cr, and urine output, keep strict I&Os -DVT prophylaxis: continue to have patient ambulate, use SCDs, and lovenox -Diet: progress diet as tolerated
[2020-12-09] MEDS: HYDROcodone/Acetaminophen 5/325 mg Tablet PO PRN ×4 (08:56→22:43)
[2020-12-09] MEDS: Famotidine 20 MG TAB PO SCH ×2 (08:56→20:26)
[2020-12-09] MEDS: Aspirin 81 mg Enteric Coated Tablet PO SCH (08:56)
[2020-12-09] MEDS: NIFEdipine XL 30 MG TAB PO SCH (09:02)
[2020-12-09] MEDS: Famotidine/PF 20 mg/2ml Vial SLOW IVP SCH (09:08)
[2020-12-09] MEDS: Carvedilol 25 MG TAB PO SCH (20:26)
[2020-12-09] MEDS: Enoxaparin Sodium 40 MG/0.4 ML SYRINGE SC SCH (20:27)
[2020-12-09] MEDS: Atorvastatin Calcium 10 MG TAB PO SCH (20:27)
[2020-12-10] MEDS: traMADol HCl 50 MG TAB PO PRN ×4 (02:24→19:43)
[2020-12-10] MEDS: HYDROcodone/Acetaminophen 5/325 mg Tablet PO PRN ×4 (02:52→19:40)
[2020-12-10 05:25] LABS: Anion Gap 13 mmol/L (10-20); BUN (Urea Nitrogen) 18 mg/dL (8.9-20.6); Calc. Creatinine Clearance 161 mL/min (70-130); Calcium 8.6 mg/dL (7.8-10.44); Carbon Dioxide 20 mmol/L (22-29); Chloride 102 mmol/L (98-107); Glucose 103 mg/dL (70-105); Potassium 4.3 mmol/L (3.5-5.1); Sodium 131 mmol/L (136-145)
[2020-12-10 05:52] LABS: Hemoglobin 8.7 g/dL (14.0-18.0); Mean Corpuscular Hemoglobin 31.9 pg (27.0-31.0); Mean Corpuscular Volume 93.6 fL (78.0-98.0); Mean Platelet Volume 6.9 fL (7.4-10.4); Platelet Count 289 thou/uL (130-400); RBC Distribution Width 12.2 % (11.5-14.5); Red Blood Cell (RBC) Count 2.74 mill/uL (4.70-6.10); White Blood Cell (WBC) Count 6.4 thou/uL (4.8-10.8)
[2020-12-10 05:59] LABS: Band 28 % (5-11); Eosinophils 3 % (0-10); Lymphocytes 15 % (21-51); MDiff Complete? YES; Monocytes 16 % (0-10); Myelocyte 1 % (0-0); Neutrophil 37 % (42-75)
[2020-12-10] MEDS: Carvedilol 25 MG TAB PO SCH ×2 (08:45→19:43)
[2020-12-10] MEDS: NIFEdipine XL 30 MG TAB PO SCH (08:45)
[2020-12-10] MEDS: Polyethylene Glycol 3350 17 GM Packet PO SCH (08:45)
[2020-12-10] MEDS: Famotidine 20 MG TAB PO SCH ×2 (08:45→19:43)
[2020-12-10] MEDS: Aspirin 81 mg Enteric Coated Tablet PO SCH (08:46)
--- NOTE | 2020-12-10 10:45 | PRG ---
DATE OF SERVICE: 12/10/2020 SUBJECTIVE: The patient says that his pain is little worse, but they just stopped his epidural today. He has passed little bit of flatus. He is tolerating full liquids. OBJECTIVE: VITAL SIGNS: On exam, his temperature is 98, pulse 98, blood pressure 133/77. GENERAL: He is awake, alert, sitting in a chair. SKIN: His incisions look fine. There is no evidence of infection. No drainage from them. JPs are putting out 35 from each side. LABORATORY DATA: His white count is 6.4, H/H 8.7 and 25, platelet count 289. Electrolytes: Sodium is little low at 131. ASSESSMENT: Doing well. PLAN: We will TKO IV, ambulate. We will wait better bowel function to advance diet further. Job ID: [id number]
[2020-12-10] MEDS: Dextrose 5 % And 0.9 % NaCl 1,000 ML IV SCH ×2 (11:27→16:35)
[2020-12-10] MEDS: Ondansetron PF 4 MG/2 ML Vial IVP PRN (17:44)
[2020-12-10] MEDS: Atorvastatin Calcium 10 MG TAB PO SCH (19:43)
[2020-12-10] MEDS: Enoxaparin Sodium 40 MG/0.4 ML SYRINGE SC SCH (19:45)
[2020-12-11] MEDS: Ondansetron PF 4 MG/2 ML Vial IVP PRN (00:11)
[2020-12-11] MEDS: HYDROcodone/Acetaminophen 5/325 mg Tablet PO PRN ×3 (00:24→08:06)
[2020-12-11] MEDS: traMADol HCl 50 MG TAB PO PRN ×2 (01:45→09:50)
[2020-12-11 05:16] LABS: #Eosinphils 0.4 thou/uL (0.0-0.7); #Lymphocytes 0.9 thou/uL (1.20-3.40); #Monocytes 1.3 thou/uL (0.11-0.59); %Basophils 0.2 % (0.0-1.0); %Eosinophils 4.6 % (0.0-10.0); %Lymphocytes 10.1 % (21.0-51.0); %Monocytes 14.7 % (0.0-10.0); %Neutrophils 70.4 % (42.0-75.0); Hemoglobin 10.1 g/dL (14.0-18.0); Mean Corpuscular HGB CONC 34.5 g/dL (32.0-36.0); Mean Corpuscular Hemoglobin 32.7 pg (27.0-31.0); Mean Corpuscular Volume 94.7 fL (78.0-98.0); Mean Platelet Volume 6.6 fL (7.4-10.4); Platelet Count 356 thou/uL (130-400); RBC Distribution Width 12.3 % (11.5-14.5); Red Blood Cell (RBC) Count 3.07 mill/uL (4.70-6.10); White Blood Cell (WBC) Count 8.5 thou/uL (4.8-10.8)
[2020-12-11] MEDS: Polyethylene Glycol 3350 17 GM Packet PO SCH (08:05)
[2020-12-11] MEDS: Aspirin 81 mg Enteric Coated Tablet PO SCH (08:05)
[2020-12-11] MEDS: Carvedilol 25 MG TAB PO SCH ×2 (08:06→20:55)
[2020-12-11] MEDS: NIFEdipine XL 30 MG TAB PO SCH (08:06)
[2020-12-11] MEDS: Famotidine 20 MG TAB PO SCH (08:06)
--- NOTE | 2020-12-11 08:13 | CT ---
PRELIMINARY REPORT/[facility]/AFTER HOURS PROCEDURE This report was discussed with Violetta Armas RN by Brian Espinoza on Dec 11, 2020 06:27:00 [employer]. Addendum electronically signed by Brian Espinoza on December 11, 2020 6:35:09 [address] [employer] CT ABDOMEN AND PELVIS WITH INTRAVENOUS CONTRAST: CLINICAL HISTORY: Surgery on Saturday. Increasing pain since then. Greatly decreased wound drainage starting tonight. TECHNIQUE: Axial computed tomography images of the abdomen and pelvis with intravenous contrast. CONTRAST: With Isovue-370 80 mL. COMPARISON: None. FINDINGS: Partially visualized intrathoracic contents are remarkable for pleural effusions with atelectasis. Pr ior open heart surgery. Small volume of ascites. Cholecystectomy. The liver, adrenals, spleen and adrenal glands are unremark able. Kidneys show no worrisome lesions, hydronephrosis, or calculi. Urinary bladder is unremarkable. Right hemicolectomy. Anterior abdominal enterocolic anastomosis. Fluid distention of the stomach and small bowel extending to the anastomoses. Normal caliber remainder of the colon. No pneumoperitoneum. No focal fluid collection/abscess. Long segment aortic dissection stent graft in place extends off the superior field of view. Aortoilia c stent. No periaortic stranding or fluid. Superficial soft tissues are remarkable for midline surgical incision with overlying skin closure cli ps. Anterior abdominal wall surgical drains are present. Adjacent the right anterolateral abdominal wall drain or is a residual fluid collection measuring escobar roximately 8 x 2 cm on axial series 2, image 47. There is dependent abdominal/flank superficial soft tissue disorganized fluid. No acute or aggressive appearing skeletal findings. IMPRESSION: 1. Right anterolateral abdominal wall collection with adjacent surgical drain measures approximately 8 x 2 cm. Differential diagnosis includes abscess, seroma and hematoma. 2. No focal intraperitoneal collection/abscess. Small volume of ascites/peritoneal fluid. 3. Small bowel obstruction versus ileus extending to the enterocolic anastomosis. No pneumoperitoneum . ELECTRONICALLY SIGNED BY: Chad Arceo MD Dec 11, 2020 6:26:08 AM [employer] This report is intended for review by the ordering physician only, in accordance of law. If you recei ve this report in error, please call [facility] at [phone]. FINAL REPORT CT ABDOMEN AND PELVIS: HISTORY: Postoperative bleeding. COMPARISON: 07/22/2020 PROCEDURE: Multiple contiguous axial images were obtained and a CT of the abdomen and pelvis with IV contrast. C oronal reformats were performed. FINDINGS: Lower Chest: Bilateral pleural effusions with adjacent atelectasis, aspiration or pneumonia. Vessels: Stable endovascular stent in the aorta. Heart: Normal heart size. Abdomen: Portal vein:Patent. Gallbladder: Surgically absent. Liver: Stable hypodensity in segment 6 of the liver. Pancreas: within normal limits. Spleen: within normal limits. Adrenals: within normal limits. Kidneys: Symmetric enhancement. No obstructive uropathy. Peritoneum: There is evidence of stranding of the abdominal mesentery with small amounts of fluid. Fl uid is noted in the perihepatic and perisplenic region. Fluid tracks along the left and right pericolic gutter. Bowel: Multiple fluid-filled loops of distended small bowel. There appears to be anastomosis of the s mall bowel left hemicolon near the splenic flexure. Visualized colon is decompressed. Mesentery and Retroperitoneum: No enlarged mesenteric or retroperitoneal lymph nodes. Abdominal Wall: There are extensive postoperative changes in the ventral abdominal wall. There is sub cutaneous fat stranding with two separate drains placed. There is a hypodensity in the right abdominal wall with associated surgical drain. Findings may represent postoperative fluid collection. Pelvis: Reproductive Organs: Reproductive organs are unremarkable. No mass, lymphadenopathy, free air or free fluid. Bladder: within normal limits. Bones: within normal limits. IMPRESSION: 1. This report is in agreement with initial report by [facility]. 2. Postoperative changes in the anterior abdominal wall. There are two separate surgical drains prese nt. There does appear to be fluid collection the right abdominal subcutaneous fat which may be postoperative. No evidence of air to suggest obvious abscess at this time. Differential consideration s do still include an early developing infected fluid collection. 2. Anastomosis of the colon and small bowel in the left upper quadrant. Multiple fluid-filled loops o f small bowel which may represent ileus or developing bowel obstruction. Continued surveillance is recommended. CODE QA Transcribed Date/Time: 12/11/2020 9:55 AM
[2020-12-11] MEDS ORDERED: Sodium Chloride 0.9% 1,000 ML IV SCH (10:30)
--- NOTE | 2020-12-11 10:52 | PRG ---
DATE OF SERVICE: 12/11/2020 SUBJECTIVE: The patient feels much worse. He feels a lot of nausea. No output out of his bottom. The pain is increased. OBJECTIVE: VITAL SIGNS: Temperature 97.9, pulse 100, blood pressure 125/79. GENERAL: He looks pale and ill. ABDOMEN: Distended. The incisions look okay. Drain output is increased and it is fairly bloody, especially in the left lower quadrant. IMAGING STUDIES: CT scan was obtained that showed a very dilated small bowel to the anastomosis including the stomach. ASSESSMENT: Partial obstruction versus ileus. PLAN: NG suction, fluid bolus, serial H and H, n.p.o. status. Job ID: [id number]
[2020-12-11] MEDS ORDERED: Morphine 2 MG/ML VIAL SLOW IVP PRN (11:07)
[2020-12-11] MEDS: D5 1/2 NS w/20 mEq KCL 1,000 ML IV SCH ×3 (11:33→23:04)
[2020-12-11] MEDS: Morphine 4 MG/ML VIAL SLOW IVP PRN ×3 (11:33→23:05)
[2020-12-11 16:33] LABS: Hemoglobin 9.3 g/dL (14.0-18.0)
[2020-12-11] MEDS: Enoxaparin Sodium 40 MG/0.4 ML SYRINGE SC SCH (20:24)
[2020-12-11] MEDS: Famotidine/PF 20 mg/2ml Vial SLOW IVP SCH (20:43)
[2020-12-11] MEDS: Atorvastatin Calcium 10 MG TAB PO SCH (20:55)
[2020-12-12] MEDS ORDERED: Morphine 2 MG/ML VIAL ONE ×3 (01:56→06:54)
[2020-12-12] MEDS: Famotidine/PF 20 mg/2ml Vial SLOW IVP SCH ×2 (09:20→21:44)
[2020-12-12] MEDS ORDERED: Morphine 4 MG/ML VIAL ONE ×3 (09:35→14:58)
[2020-12-12] MEDS ORDERED: D5 1/2 NS w/20 mEq KCL 1,000 ML ONE (09:37)
[2020-12-12] MEDS: Morphine 4 MG/ML VIAL SLOW IVP PRN ×5 (09:40→23:47)
[2020-12-12] MEDS: D5 1/2 NS w/20 mEq KCL 1,000 ML IV SCH ×3 (09:50→23:14)
[2020-12-12] MEDS ORDERED: Iopamidol 370 76% 50 ML VIAL FS ONE (12:09)
[2020-12-12] MEDS ORDERED: Iopamidol-370 76% 500 ML 1 ML ONE (12:09)
--- NOTE | 2020-12-12 12:14 | PRG ---
DATE OF SERVICE: 12/12/2020 SUBJECTIVE: Thom Carrillo is doing well today. He has taken enema this morning without any significant results. He is not having nausea or vomiting. NG tube is to suction. OBJECTIVE: LUNGS: Clear to auscultation. CARDIAC: Regular rate and rhythm without murmur or gallop. ABDOMEN: Obese, soft. Wound looks good. Good bowel sounds noted. Postoperative surgical tenderness. No peritoneal signs. EXTREMITIES: Unremarkable. ASSESSMENT/PLAN: Inspissated stool in the colon, status post ileostomy reversal, trial of enemas today. NG tube to suction it does overnight. He may need a gastrografin enema or other laxatives, mild from above. Pending clinical course. Job ID: [id number]
[2020-12-12] MEDS: Aspirin 81 mg Enteric Coated Tablet PO SCH (15:26)
[2020-12-12] MEDS: Carvedilol 25 MG TAB PO SCH ×2 (15:26→21:44)
[2020-12-12] MEDS: NIFEdipine XL 30 MG TAB PO SCH (15:27)
[2020-12-12] MEDS: Polyethylene Glycol 3350 17 GM Packet PO SCH (15:27)
[2020-12-12 15:51] LABS: Anion Gap 14 mmol/L (10-20); BUN (Urea Nitrogen) 18 mg/dL (8.9-20.6); Calc. Creatinine Clearance 203 mL/min (70-130); Calcium 8.4 mg/dL (7.8-10.44); Carbon Dioxide 24 mmol/L (22-29); Chloride 99 mmol/L (98-107); Glucose 118 mg/dL (70-105); Potassium 4.4 mmol/L (3.5-5.1); Sodium 133 mmol/L (136-145)
[2020-12-12 19:04] LABS: Anisocytosis SLIGHT = 6-15 cells (100X) (0-5/hpf); Band 55 % (5-11); Eosinophils 1 % (0-10); Lymphocytes 7 % (21-51); MDiff Complete? YES; Mean Corpuscular HGB CONC 32.5 g/dL (32.0-36.0); Mean Corpuscular Hemoglobin 30.9 pg (27.0-31.0); Mean Corpuscular Volume 95.2 fL (78.0-98.0); Metamyelocyte 4 % (0-0); Monocytes 18 % (0-10); Myelocyte 2 % (0-0); Neutrophil 6 % (42-75); Nucleated RBC 2 % (0); Platelet Count 372 thou/uL (130-400); Platelet Morphology Comment Appears Adequate; Polychromasia MODERATE = 3-4 cells (100X) (0-2/hpf); RBC Distribution Width 13.1 % (11.5-14.5); Reactive Lymphocytes 7 % (0-10); Toxic Granulation SLIGHT; White Blood Cell (WBC) Count 6.6 thou/uL (4.8-10.8)
--- NOTE | 2020-12-12 20:43 | CT ---
CT abdomen and pelvis with IV and rectal contrast HISTORY: Abdominal pain. Fever. Tachycardia. Recent abdomen surgery. COMPARISON: 12/11/2020 and 07/22/2020. FINDINGS: Small amount of bilateral pleural fluid and compressive atelectasis at the lung bases simil ar in appearance to the prior study. Aortoiliac stent graft remains in place with persistent contrast opacification within the false lumen that is similar in appearance to the most recent exam. Postoperative changes anterior abdominal wall with surgical drains unchanged in appearance. Small wojciech unt of free fluid in the abdomen is stable. Nasogastric tube remains in place. Tiny cyst within the inferior aspect of the right liver lobe is unchanged. Gallbladder surgically absent. Surgical anastomosis within the left abdomen again demonstrated. Recta l contrast has passed beyond this point without leak or obstruction apparent. Dilated loops of small bowel remain up to 4.0 cm diameter. No transition point. IMPRESSION : Small bowel dilatation likely related to an ileus. No findings of obstruction on the current exam. No leak or other complication related to the bowel anastomosis in the left abdomen. Postoperative changes of anterior abdominal wall are stable without evidence of complication. Small bilateral pleural effusions, stable. Other findings are unchanged.
[2020-12-12] MEDS: Enoxaparin Sodium 40 MG/0.4 ML SYRINGE SC SCH (21:48)
[2020-12-12] MEDS: Atorvastatin Calcium 10 MG TAB PO SCH (22:13)
--- NOTE | 2020-12-12 22:16 | PRG ---
DATE OF SERVICE: 12/12/2020 SUBJECTIVE: Mr. Carrillo is postoperative day #6 from a lengthy operation for ileostomy reversal and repair of large peristomal hernia. He remains in the hospital on the surgical floor. Today is Saturday. Over the weekend, the nasogastric tube was replaced as he developed some nausea and vomiting. CT scan showed potential obstruction at the ileocolonic anastomosis. Enemas were trialed today with minimal output. This evening, patient developed fever up to 102 and tachycardia up to 130. I ordered a CT scan of abdomen and pelvis with rectal contrast. This showed that there was no evidence of obstruction or anastomotic leak. There was no free air or significant fluid within the abdomen. He does have some anasarca type changes in the soft tissue around the abdomen. He does not have definite pneumonia type changes in his lung bases. There are some bilateral small pleural effusions. PHYSICAL EXAMINATION: VITAL SIGNS: Currently, his fever has resolved spontaneously, has a temperature of 98.4, his pulse is 120, his blood pressure is 130/70. GENERAL: He is sitting in the chair at bedside. He tells me he feels relatively comfortable and feels much better than he did earlier today. He has had a large volume of fluid out from his nasogastric tube since it was reconnected. He also tells me he has had 2 or 3 good-sized bowel movements following the rectal contrast administration for his CT scan. LUNGS: Clear to auscultation anteriorly bilaterally. ABDOMEN: His incisions are healing nicely. He has serosanguineous drainage in his drains bilaterally. It is noted that the output from these were fairly high yesterday at over 300 mL from the left and 60 mL on the right. The output appears to be much less thus far today, however. He has scant hypoactive bowel sounds. He has no significant tenderness to palpation on either side of his abdomen. Other than incisional tenderness, he does not appear to have any substantial abdominal discomfort. ASSESSMENT: He appears to be stable currently. I was concerned that he had the anastomotic leak when he developed a fever and tachycardia. However, his physical examination or his CT scan appeared to be consistent with that. In light of his fever, I will empirically start him on antibiotics using Zosyn. I will increase his IV fluid for now. I note also that his weight, if the number in the computer is correct, it seems to be up 40 or 50 pounds from admission. He was given a large volume of fluid as he appeared to be dehydrated after surgery. In attempt to begin to mobilize some of this, I will give him a dose of Lasix. It is noted that his creatinine level this morning was 1.02, which is the best I have ever seen for him. I will have him receive his carvedilol to make sure his tachycardia is not at all related to rebound from discontinuation of his beta eden. I suspect this more likely that was related to his fever and I am not certain exactly why he had the fever. I have encouraged him to continue to ambulate and wait for bowel function to return. I also explained to him that it is possible at any time that he could require reexploration, but for now that does not appear to be necessary. Job ID: [id number]
[2020-12-12] MEDS ORDERED: Furosemide 20 MG/2 ML VIAL SLOW IVP SCH (22:45)
[2020-12-12] MEDS ORDERED: Piperacillin/Tazobactam 4.5 GM in Sodium Chloride 0.9% 100 ML IVPB SCH (22:45)
[2020-12-13 05:29] LABS: Anion Gap 11 mmol/L (10-20); BUN (Urea Nitrogen) 17 mg/dL (8.9-20.6); Calc. Creatinine Clearance 180 mL/min (70-130); Carbon Dioxide 30 mmol/L (22-29); Chloride 95 mmol/L (98-107); Glucose 120 mg/dL (70-105); Potassium 4.1 mmol/L (3.5-5.1); Sodium 132 mmol/L (136-145)
[2020-12-13] MEDS: Piperacillin/Tazobactam 4.5 GM in Sodium Chloride 0.9% 100 ML IVPB SCH ×4 (05:49→23:15)
[2020-12-13] MEDS: Morphine 4 MG/ML VIAL SLOW IVP PRN ×5 (05:49→23:30)
[2020-12-13] MEDS: D5 1/2 NS w/20 mEq KCL 1,000 ML IV SCH (05:51)
[2020-12-13 07:00] LABS: Band 44 % (5-11); Eosinophils 5 % (0-10); Hemoglobin 8.6 g/dL (14.0-18.0); Lymphocytes 17 % (21-51); MDiff Complete? YES; Mean Corpuscular HGB CONC 33.3 g/dL (32.0-36.0); Mean Corpuscular Hemoglobin 31.2 pg (27.0-31.0); Mean Corpuscular Volume 93.6 fL (78.0-98.0); Mean Platelet Volume 6.7 fL (7.4-10.4); Monocytes 6 % (0-10); Myelocyte 2 % (0-0); Neutrophil 26 % (42-75); Nucleated RBC 3 % (0); Platelet Count 366 thou/uL (130-400); RBC Distribution Width 12.6 % (11.5-14.5); Red Blood Cell (RBC) Count 2.75 mill/uL (4.70-6.10); White Blood Cell (WBC) Count 8.8 thou/uL (4.8-10.8)
[2020-12-13] MEDS ORDERED: Chloraseptic Spray 180 ml Bottle PO PRN (07:03)
[2020-12-13] MEDS: D5 0.9% NS w/ 20 mEq KCl 1,000 ML IV SCH ×2 (09:23→17:30)
[2020-12-13] MEDS: Famotidine/PF 20 mg/2ml Vial SLOW IVP SCH ×2 (09:24→20:35)
[2020-12-13] MEDS: Carvedilol 25 MG TAB PO SCH ×2 (09:24→20:35)
[2020-12-13] MEDS: Aspirin 81 mg Enteric Coated Tablet PO SCH (09:24)
[2020-12-13] MEDS: Enoxaparin Sodium 40 MG/0.4 ML SYRINGE SC SCH (20:35)
[2020-12-14] MEDS: D5 0.9% NS w/ 20 mEq KCl 1,000 ML IV SCH ×4 (00:20→23:15)
[2020-12-14] MEDS: diphenhydrAMINE 50 MG/ML VIAL IVP PRN ×2 (00:20→23:12)
[2020-12-14] MEDS: Piperacillin/Tazobactam 4.5 GM in Sodium Chloride 0.9% 100 ML IVPB SCH ×4 (05:33→23:13)
--- NOTE | 2020-12-14 06:20 | PRG ---
DATE OF SERVICE: 12/13/2020 SUBJECTIVE: Mr. Carrillo today is postoperative day #7 following laparotomy with ileostomy reversal and repair of a large parastomal hernia. Yesterday, he developed fever and tachycardia. CT scan was obtained which showed no evidence of anastomotic leak. He was started empirically on Zosyn for antibiotic coverage. He was given a fair amount of IV fluid overnight. He is still n.p.o. with nasogastric tube in place. This morning, he tells me that in general, he feels well. He believes he had one more bowel movement after I saw him last night. He is urinating well. He notes abdominal discomfort, but denies any severe pain. He is ambulating. PHYSICAL EXAMINATION: VITAL SIGNS: Temperature is 99.0 at its highest. Pulse is 85 to 96. Blood pressure is 108/58. Oxygen saturation is 94% to 95% on room air. LUNGS: Clear to auscultation. ABDOMEN: Obese, but appears to be soft. Bowel sounds are very hypoactive. His incisions all appeared to be healing nicely with martha intact. Drains are inspected to have serosanguineous drainage in both the right and left side drains. Drain output for yesterday was 60 mL in the left drain and 20 mL in the right drain. LABORATORY DATA: CBC shows white blood cell count 8.8 with hemoglobin of 8.6. He has bandemia of 44%, platelet count is stable at 366. Chemistry profile shows mildly low sodium and chloride levels. CO2 was elevated at 30. Creatinine is stable at 1.1. ASSESSMENT: He appears to be stable with resolving ileus. Still not certain why he developed a fever yesterday, but it is possible this is because of atelectasis brought on by abdominal distention. He has felt better since he had the rectal contrast with the CT scan and several bowel movements. Hopefully, his ileus will resolve in the near future. I have encouraged him to decrease his narcotic usage as possible. For now, nasogastric tube will be continued. Job ID: [id number]
[2020-12-14 06:35] LABS: Anion Gap 12 mmol/L (10-20); BUN (Urea Nitrogen) 14 mg/dL (8.9-20.6); Calc. Creatinine Clearance 171 mL/min (70-130); Calcium 7.9 mg/dL (7.8-10.44); Carbon Dioxide 28 mmol/L (22-29); Chloride 101 mmol/L (98-107); Glucose 106 mg/dL (70-105); Hemoglobin 8.9 g/dL (14.0-18.0); Mean Corpuscular HGB CONC 32.4 g/dL (32.0-36.0); Mean Corpuscular Volume 95.7 fL (78.0-98.0); Mean Platelet Volume 6.6 fL (7.4-10.4); Platelet Count 357 thou/uL (130-400); Potassium 3.9 mmol/L (3.5-5.1); RBC Distribution Width 12.8 % (11.5-14.5); Red Blood Cell (RBC) Count 2.88 mill/uL (4.70-6.10); Sodium 137 mmol/L (136-145); White Blood Cell (WBC) Count 8.6 thou/uL (4.8-10.8)
[2020-12-14] MEDS ORDERED: Furosemide 20 MG/2 ML VIAL SLOW IVP SCH (06:45)
[2020-12-14 07:08] LABS: #Eosinphils 0.1 thou/uL (0.0-0.7); #Lymphocytes 0.9 thou/uL (1.20-3.40); #Neutrophils 6.2 thou/uL (1.40-6.50); Band 26 % (5-11); Eosinophils 2 % (0-10); Lymphocytes 13 % (21-51); MDiff Complete? YES; Metamyelocyte 2 % (0-0); Monocytes 10 % (0-10); Myelocyte 3 % (0-0); Neutrophil 44 % (42-75); Nucleated RBC 1 % (0); Platelet Morphology Comment Appears Adequate; Polychromasia MODERATE = 3-4 cells (100X) (0-2/hpf)
[2020-12-14 07:30] LABS: ALT (SGPT) 15 U/L (8-55); AST (SGOT) 22 U/L (5-34); Albumin 2.7 g/dL (3.5-5.0); Alkaline Phosphatase 61 U/L (40-110); Bilirubin, Direct 0.8 mg/dL (0.1-0.3); Bilirubin, Total 2.1 mg/dL (0.2-1.2); Protein, Total 5.2 g/dL (6.0-8.3)
[2020-12-14] MEDS: Famotidine/PF 20 mg/2ml Vial SLOW IVP SCH ×2 (08:30→20:07)
[2020-12-14] MEDS: Aspirin 81 mg Enteric Coated Tablet PO SCH (08:30)
[2020-12-14] MEDS: Morphine 4 MG/ML VIAL SLOW IVP PRN ×5 (08:41→23:12)
--- NOTE | 2020-12-14 15:08 | EKG ---
Test Reason : STAT Blood Pressure : / mmHG Vent. Rate : 126 BPM Atrial Rate : 126 BPM P-R Int : 142 ms QRS Dur : 084 ms QT Int : 298 ms P-R-T Axes : 038 030 040 degrees QTc Int : 431 ms Sinus tachycardia Septal infarct , age undetermined Abnormal ECG When compared with ECG of 01-DEC-2020 11:46, (Unconfirmed) Vent. rate has increased BY 53 BPM Left anterior fascicular block is no longer Present Septal infarct is now Present Confirmed by CHEL FLORES (2) on 12/14/2020 3:08:27 PM Referred By: ROSY Confirmed By:CHEL FLORES
--- NOTE | 2020-12-14 17:06 | PRG ---
DATE OF SERVICE: 12/14/2020 SUBJECTIVE: Mr. Carrillo is postoperative day #8 following laparotomy with ileostomy reversal and repair of a large peristomal hernia. He remains in his bed on the surgical floor. He is 2 days removed from a single episode of fever with tachycardia. CT scan showed no evidence of significant intraabdominal problem. He has had ileus with significant bilious nasogastric output since then. Today, he notes some mild right-sided abdominal discomfort, but nothing severe. He is of course annoyed by his nasogastric tube. The patient tells me that he has had a couple of bowel movements today, but really has not passed much flatus. He has been urinating well. He has no other concerns. OBJECTIVE: VITAL SIGNS: He is afebrile with a maximum temperature of 98.7; pulse is 88; blood pressure is 99/54, that is lower than his other blood pressures for the past 24 hours; oxygen saturation is 95% on room air. He is breathing comfortably and has a good cough. LUNGS: Clear to auscultation anteriorly. CARDIAC: Regular rate and rhythm. ABDOMEN: Soft with incisions healing nicely. I am not able to hear any bowel sounds today. Drains continued to have output. The left drain in particular today had darker more voluminous output than on the right and I submitted this for a culture today. I cannot tell if the smell from that is that of old blood, or potentially even enteric material. The right-sided drain output is dropping off and it was only 10 mL for the last 12 hours. LABORATORY DATA: CBC shows a white blood cell count of 8.6 with hemoglobin of 8.9, platelet count 357. His band count is still elevated at 26, but it is decreasing each day for the past couple of days. Chemistry show entirely normal electrolytes. Creatinine is 1.2. Bilirubin is slightly elevated at 2.1. This is the first time I have checked it during this hospitalization. Albumin is low at 2.7. ASSESSMENT AND PLAN: The patient has an ileus. He has a resolving bandemia. He is entirely hemodynamically stable and without significant discomfort. I wonder if he maybe had a temporary leak from an area that closed spontaneously. Perhaps this was related to his obstructive issue before the CT scan was obtained. There is no clear-cut reasons for returning him to the operating room for laparotomy and washout, so I will continue to observe him at this time. Since it has been over a week without nutrition, I will have a PICC line placed and start him on TPN tomorrow. He understands there is still a possibility of requiring return to the operating room. Job ID: [id number]
--- NOTE | 2020-12-14 17:22 | RAD ---
PORTABLE CHEST: HISTORY: Cough. COMPARISON: 06/13/[address] abdomen from 12/12/2020 with images through the lung bases. FINDINGS: There is a CT that revealed bilateral pleural effusions and bibasilar atelectasis. Today's portable chest shows patchy atelectasis and infiltrate in the left lower lobe. Bilateral effu sions are again noted, better delineated on the CT. The upper lung benitez are clear. The vascular markings are normal. The heart is mildly prominent. Aor tic stent graft is noted with postop sternotomy change. IMPRESSION: 1. Left lower lobe atelectasis and/or infiltrate. 2. Bilateral effusions. POS: AGW
[2020-12-14] MEDS: Enoxaparin Sodium 40 MG/0.4 ML SYRINGE SC SCH (20:08)
[2020-12-15] MEDS: Morphine 4 MG/ML VIAL SLOW IVP PRN ×2 (01:49→09:24)
[2020-12-15 06:04] LABS: ALT (SGPT) 15 U/L (8-55); AST (SGOT) 21 U/L (5-34); Albumin 2.7 g/dL (3.5-5.0); Alkaline Phosphatase 57 U/L (40-110); Anion Gap 14 mmol/L (10-20); BUN (Urea Nitrogen) 12 mg/dL (8.9-20.6); Bilirubin, Total 1.9 mg/dL (0.2-1.2); Calc. Creatinine Clearance 174 mL/min (70-130); Carbon Dioxide 25 mmol/L (22-29); Chloride 105 mmol/L (98-107); Globulin 2.6 g/dL (2.4-3.5); Glucose 92 mg/dL (70-105); Phosphorus 3.9 mg/dL (2.3-4.7); Potassium 3.9 mmol/L (3.5-5.1); Protein, Total 5.3 g/dL (6.0-8.3); Sodium 140 mmol/L (136-145)
[2020-12-15] MEDS: Piperacillin/Tazobactam 4.5 GM in Sodium Chloride 0.9% 100 ML IVPB SCH ×3 (06:37→18:36)
[2020-12-15 07:15] LABS: Hemoglobin 8.6 g/dL (14.0-18.0); Mean Corpuscular HGB CONC 32.3 g/dL (32.0-36.0); Mean Corpuscular Hemoglobin 30.4 pg (27.0-31.0); Mean Corpuscular Volume 94.2 fL (78.0-98.0); Mean Platelet Volume 6.3 fL (7.4-10.4); Platelet Count 374 thou/uL (130-400); Red Blood Cell (RBC) Count 2.83 mill/uL (4.70-6.10); White Blood Cell (WBC) Count 10.7 thou/uL (4.8-10.8)
[2020-12-15] MEDS: Aspirin 81 mg Enteric Coated Tablet PO SCH (09:24)
[2020-12-15] MEDS: Famotidine/PF 20 mg/2ml Vial SLOW IVP SCH ×2 (09:24→22:23)
[2020-12-15 09:43] LABS: Band 22 % (5-11); Eosinophils 1 % (0-10); Hypochromia SLIGHT = 6-15 cells (100X) (0-5/hpf); Lymphocytes 14 % (21-51); MDiff Complete? YES; Metamyelocyte 1 % (0-0); Monocytes 5 % (0-10); Myelocyte 1 % (0-0); Neutrophil 56 % (42-75); Platelet Morphology Comment Appears Adequate; Polychromasia SLIGHT = 2-3 cells (100X) (0-2/hpf)
--- NOTE | 2020-12-15 16:37 | PRG ---
DATE OF SERVICE: 12/15/2020 SUBJECTIVE: Mr. Carrillo is postoperative day #9 following laparotomy with ileostomy reversal and repair of a large peristomal hernia. He remains on the surgical floor. When I arrive today, he is in good spirits. He tells me he has had a couple of bowel movements and he is hungry. He notes that he has been sipping at Gatorade and this may be responsible for his large volume of gastric drainage that has been in his NG tube. He notes he has heard "lots of rumbling" from his abdomen. OBJECTIVE: VITAL SIGNS: On examination, he remains afebrile. Temperature is 98.1, pulse is 94 and 95, blood pressure is 128/69, and oxygen saturation is 96% on room air. LUNGS: Clear to auscultation. ABDOMEN: Incisions appear to be healing nicely. Both drains are intact. The right lower quadrant drain in the peristomal hernia site is draining negligible fluid only about 5 or 10 mL per day. The drainage from his midline wound was about 100 mL for yesterday and is still darker than typical serosanguineous. LABORATORY DATA: Cultures from the left-sided drain reveal presumptive Escherichia coli. LABORATORY DATA: White blood cell count has gone up slightly to 10.7, hemoglobin is 8.6. Bandemia continues to resolve and his band count is only 22% currently. His chemistry panel remains entirely normal. His bilirubin dropped from 2.1 to 1.9. Albumin is low at 2.7. ASSESSMENT: The patient appears stable and is in good spirits. He has had a couple of bowel movements and has good bowel sounds. I will therefore remove his nasogastric tube and start a clear liquid diet. I have encouraged him to progress slowly. I was planning a PICC line and TPN initiation, but we will hold off on that for now. If he is able to tolerate this and advance his diet and there is no reason he could get appropriate calories by mouth. I will continue his intravenous Zosyn for now. Job ID: [id number]
[2020-12-15] MEDS: D5 0.9% NS w/ 20 mEq KCl 1,000 ML IV SCH ×2 (17:00→22:23)
[2020-12-15] MEDS: Enoxaparin Sodium 40 MG/0.4 ML SYRINGE SC SCH (22:23)
[2020-12-16] MEDS: Piperacillin/Tazobactam 4.5 GM in Sodium Chloride 0.9% 100 ML IVPB SCH ×2 (00:11→05:58)
[2020-12-16] MEDS: D5 0.9% NS w/ 20 mEq KCl 1,000 ML IV SCH ×3 (02:32→17:37)
[2020-12-16 05:44] LABS: #Eosinphils 0.2 thou/uL (0.0-0.7); #Lymphocytes 1.3 thou/uL (1.20-3.40); #Monocytes 1.1 thou/uL (0.11-0.59); #Neutrophils 8.2 thou/uL (1.40-6.50); %Basophils 0.4 % (0.0-1.0); %Eosinophils 2.2 % (0.0-10.0); %Lymphocytes 11.7 % (21.0-51.0); %Monocytes 10.2 % (0.0-10.0); %Neutrophils 75.6 % (42.0-75.0); Hemoglobin 9.1 g/dL (14.0-18.0); Mean Corpuscular HGB CONC 32.1 g/dL (32.0-36.0); Mean Corpuscular Hemoglobin 30.3 pg (27.0-31.0); Mean Corpuscular Volume 94.3 fL (78.0-98.0); Mean Platelet Volume 6.3 fL (7.4-10.4); Platelet Count 365 thou/uL (130-400); RBC Distribution Width 13.1 % (11.5-14.5); Red Blood Cell (RBC) Count 3.02 mill/uL (4.70-6.10); White Blood Cell (WBC) Count 10.8 thou/uL (4.8-10.8)
[2020-12-16 06:08] LABS: Anion Gap 12 mmol/L (10-20); BUN (Urea Nitrogen) 10 mg/dL (8.9-20.6); Calc. Creatinine Clearance 184 mL/min (70-130); Calcium 7.7 mg/dL (7.8-10.44); Carbon Dioxide 25 mmol/L (22-29); Chloride 104 mmol/L (98-107); Glucose 92 mg/dL (70-105); Potassium 3.6 mmol/L (3.5-5.1); Sodium 137 mmol/L (136-145)
[2020-12-16] MEDS: NIFEdipine XL 30 MG TAB PO SCH (09:21)
[2020-12-16] MEDS: Famotidine/PF 20 mg/2ml Vial SLOW IVP SCH (09:21)
[2020-12-16] MEDS: Aspirin 81 mg Enteric Coated Tablet PO SCH (09:22)
[2020-12-16] MEDS ORDERED: Furosemide 40 MG TAB PO SCH (10:45)
[2020-12-16] MEDS ORDERED: Ciprofloxacin 500 MG TAB PO SCH (10:45)
--- NOTE | 2020-12-16 11:00 | PRG ---
DATE OF SERVICE: 12/16/2020 SUBJECTIVE: Mr. Carrillo is postoperative day #10 following laparotomy with ileostomy reversal and repair of large peristomal hernia. He is on the surgical floor in the hospital. Four days ago, he had a febrile episode with tachycardia that resolved quickly. He never had evidence of intraabdominal leak. He does have E coli draining from the drain that is positioned in the subcutaneous tissue of his midline wound. He has been on intravenous Zosyn since his febrile episode. Yesterday I removed his nasogastric tube and started a clear liquid diet. He has taken a significant volume of clear liquids. He denies vomiting, although he tells me he has felt somewhat bloated this morning. He notes he has had several bowel movements, most of which are loose or liquid. He is urinating well. PHYSICAL EXAMINATION: VITAL SIGNS: He is afebrile. Pulse is in the 90s. Blood pressure is 125/71. LUNGS: Clear to auscultation. ABDOMEN: Soft and nontender. Incisions remain nicely healed. He has negligible drain output from the right-sided drain and this will be removed today. His left-sided drain is still draining cloudy appearing opaque serosanguineous material. Again, E coli was cultured from this. EXTREMITIES: Unremarkable. His weight is 285 pounds, which is up a couple pounds from his weight yesterday. ASSESSMENT: He is overall doing well. I am certainly concerned about the E coli in his midline wound drainage. I will not remove the drain at this time as he would almost certainly developed an abscess in this area. I will, however, discontinue his Zosyn and start him on high dosage ciprofloxacin. I will advance up to a full liquid diet and begin nutritional supplementation as well. I will give him a dose of Lasix to encourage continued fluid loss as he has had significant fluid gain since he was admitted to the hospital. His IV fluids will be decreased and can probably be discontinued shortly if he continue to tolerate his diet. If he tolerates full liquids today, I would advance him to a regular diet tomorrow and plan on discharging him in 24-48 hours. Again, his left-sided drain should be left in until followup and to be continued on oral antibiotics during this time. Job ID: [id number]
[2020-12-16] MEDS ORDERED: traMADol HCl 50 MG TAB PO PRN ×2 (12:30)
[2020-12-16 14:56] VITALS: BMI 38.6
[2020-12-16] MEDS: Carvedilol 6.25 MG TAB PO SCH (17:36)
[2020-12-16] MEDS: Famotidine 20 MG TAB PO SCH (20:35)
[2020-12-16] MEDS: Ciprofloxacin 500 MG TAB PO SCH (20:35)
[2020-12-16] MEDS: Enoxaparin Sodium 40 MG/0.4 ML SYRINGE SC SCH (20:35)
[2020-12-16] MEDS ORDERED: Atorvastatin Calcium 20 MG TAB PO SCH (21:00)
[2020-12-17] MEDS: Ciprofloxacin 500 MG TAB PO SCH (05:24)
[2020-12-17] MEDS ORDERED: Furosemide 20 MG TAB PO SCH (08:00)
[2020-12-17 10:00] LABS: #Eosinphils 0.6 thou/uL (0.0-0.7); #Lymphocytes 1.4 thou/uL (1.20-3.40); #Neutrophils 7.2 thou/uL (1.40-6.50); %Basophils 0.2 % (0.0-1.0); %Eosinophils 6.2 % (0.0-10.0); %Lymphocytes 13.4 % (21.0-51.0); %Monocytes 9.8 % (0.0-10.0); %Neutrophils 70.4 % (42.0-75.0); Hemoglobin 9.3 g/dL (14.0-18.0); Mean Corpuscular HGB CONC 32.2 g/dL (32.0-36.0); Mean Corpuscular Hemoglobin 30.1 pg (27.0-31.0); Mean Corpuscular Volume 93.3 fL (78.0-98.0); Mean Platelet Volume 6.3 fL (7.4-10.4); Platelet Count 359 thou/uL (130-400); White Blood Cell (WBC) Count 10.2 thou/uL (4.8-10.8)
[2020-12-17] MEDS: Carvedilol 6.25 MG TAB PO SCH (10:27)
[2020-12-17] MEDS: NIFEdipine XL 30 MG TAB PO SCH (10:27)
[2020-12-17] MEDS: Famotidine 20 MG TAB PO SCH (10:27)
[2020-12-17] MEDS: Aspirin 81 mg Enteric Coated Tablet PO SCH (10:27)
[2020-12-17] MEDS: D5 0.9% NS w/ 20 mEq KCl 1,000 ML IV SCH (10:31)
--- NOTE | 2020-12-17 16:20 | PRG ---
DATE OF SERVICE: 12/17/2020 SUBJECTIVE: Mr. Carrillo is doing well today. He is afebrile. His BANDAR drain is draining a purulent material about 100 mL last 24 hours. He is on Cipro 750 b.i.d. His pain is well controlled. He is adequately controlled on Tylenol and ibuprofen. He wants to go home today. Bowel function is good. OBJECTIVE: LUNGS: Clear to auscultation. CARDIAC: Regular rate and rhythm without murmur or gallop. ABDOMEN: Soft. Nontender. Wound looks good. Drainage is noted. ASSESSMENT AND PLAN: Doing well with his BANDAR drain. Cipro 750 b.i.d. and Ultram 50 mg p.o. q.4 hours p.r.n. pain. Follow up with Dr. Meredith early next week. He will be instructed on BANDAR drain care. Resume his home medications. Job ID: [id number]
[2020-12-17 16:22] VITALS: BP 104/62; TEMP 98.3
--- NOTE | 2020-12-19 04:08 | PQF ---
CLINICAL DOCUMENTATION CLARIFICATION FORM: Dear : Neil Álvarez Date / Time: 12/19/2020406 Please exercise your independent, professional judgment in responding to the clarification form. Clinical indicators are provided on the bottom of this form for your review Please check appropriate box(s):THIS IS DR MEREDITH' PATIENT-DIRECT TO HIM [ ] Hypovolemic Shock [ ] Shock Unspecified [ ] Other diagnosis, please specify [ ] Unable to determine In addition, please specify: Present on Admission (POA): [ ] Yes [ ] No [ ] Unable to determine Physician Signature: Date/Time: For continuity of documentation, please document condition throughout progress notes and discharge summary. Thank You. To be completed by CDI/Coding staff for physician review: Present Clinical Indicators - Signs / Symptoms / Labs Results and Location in Medical Record [x] BP 82/54, Pulse 110, Resp 16, Temp 98.4 Vital signs 12/07 [x] Pt experiencing slight dizziness and tachycardia PN p1 12/07 Dr Meredith [x] appeared to be dehydrated after surgery PN p2 12/12 Dr Meredith [x] Developed some nausea and vomiting PN p2 12/12 Dr Meredith [x] Develop fever PN p2 12/12 Dr Meredith Present Risk Factors Results and Location in Medical Record [x] Parastomal hernia PN p1 12/07 Dr Meredith [x] s/p Reversal ileosotmy PN p1 12/07 Dr Meredith [x] BRIANNA PN p1 12/07 Dr Meredith [x] Former Smoker HP 12/06 [x] Morbid Obesity OP Note 12/06 Present Treatments Results and Location in Medical Record [x] IVF NS 3L Bolus MAR 12/07 [x] Strick I/Os PN p1 12/07 Dr Meredith [x] Monitor urine output PN p1 12/07 Dr Meredith [x] Consider going up on maintenance fluids to 200 ml/hr PN p1 12/07 Dr Meredith [x] Hold home BP mends PN p1 12/07 Dr Meredith CDS/Sound Effects Manager Signature: Joanna Hummel Phone #: [phone] Date/Time: 12/19/20406 This is a permanent part of the Medical Record [facility]
--- NOTE | 2020-12-19 17:55 | PQF ---
CLINICAL DOCUMENTATION CLARIFICATION FORM: Dear : Chad Meredith Date / Time: 12/19/2020 6529 Please exercise your independent, professional judgment in responding to the clarification form. Clinical indicators are provided on the bottom of this form for your review Please check appropriate box(s): [ x ] Hypovolemic Shock [ ] Shock Unspecified [ ] Other diagnosis, please specify [ ] Unable to determine In addition, please specify: Present on Admission (POA): [ ] Yes [x ] No [ ] Unable to determine Physician Signature: ne Date/Time:12/26/20 For continuity of documentation, please document condition throughout progress notes and discharge summary. Thank You To be completed by CDI/Coding staff for physician review: Present Clinical Indicators - Signs / Symptoms / Labs Results and Location in Medical Record [x] BP 82/54, Pulse 110, Resp 16, Temp 98.4 Vital signs 12/07 [x] Pt experiencing slight dizziness and tachycardia PN p1 12/07 Dr Meredith [x] appeared to be dehydrated after surgery PN p2 12/12 Dr Meredith [x] Developed some nausea and vomiting PN p2 12/12 Dr Meredith [x] Develop fever PN p2 12/12 Dr Meredith Present Risk Factors Results and Location in Medical Record [x] Parastomal hernia PN p1 12/07 Dr Meredith [x] s/p Reversal ileosotmy PN p1 12/07 Dr Meredith [x] BRIANNA PN 12/07 Dr Meredith [x] Former Smoker HP 12/06 [x] Morbid Obesity OP Note 12/06 Present Treatments Results and Location in Medical Record [x] IVF NS 3L Bolus MAR 12/07 [x] Strick I/Os PN p1 12/07 Dr Meredith [x] Monitor urine output PN p1 12/07 Dr Meredith [x] Consider going up on maintenance fluids to 200 ml/hr PN p1 12/07 Dr Meredith [x] Hold home BP mends PN p1 12/07 Dr Meredith CDS/Seamless Tube Roller Signature: Joanna Miranda Estephanie Phone #: [phone] Date/Time: 12/19/20 5785 This is a permanent part of the Medical Record [facility]
== END 2020-12-17 16:40 | disposition home or self-care (01) | DRG 330 ==
LOC: SURG A 12-06 07:49
PROVIDERS: ADMIT Specialist; ATTEND Specialist
PROC: 0D1B0Z4 Bypass Ileum to Cutaneous, Open Approach (ICD-10-PCS; principal; 2020-12-06)
PROC: 0DBB0ZZ Excision of Ileum, Open Approach (ICD-10-PCS; 2020-12-06)
PROC: 0DBE0ZZ Excision of Large Intestine, Open Approach (ICD-10-PCS; 2020-12-06)
PROC: 0WQF0ZZ Repair Abdominal Wall, Open Approach (ICD-10-PCS; 2020-12-06)
PROC: 3E0M05Z Introduction of Adhesion Barrier into Peritoneal Cavity, Open Approach (ICD-10-PCS; 2020-12-06)
DX: Z43.2 Encounter for attention to ileostomy (principal); N17.9 Acute kidney failure, unspecified; F31.5 Bipolar disorder, current episode depressed, severe, with psychotic features; K56.7 Ileus, unspecified; J98.11 Atelectasis; Z20.822 Contact with and (suspected) exposure to COVID-19; K43.5 Parastomal hernia without obstruction or gangrene; I10 Essential (primary) hypertension; I48.91 Unspecified atrial fibrillation; E66.01 Morbid (severe) obesity due to excess calories; E86.0 Dehydration; Z68.39 Body mass index [BMI] 39.0-39.9, adult; Z79.899 Other long term (current) drug therapy; Z79.82 Long term (current) use of aspirin; Z90.49 Acquired absence of other specified parts of digestive tract; Z87.891 Personal history of nicotine dependence; Z95.2 Presence of prosthetic heart valve; Z82.49 Family history of ischemic heart disease and other diseases of the circulatory system; Z80.6 Family history of leukemia
CPT/HCPCS: 36415; 36416; 71045; 74177; 80048; 80053; 80076; 83735; 84100; 85007; 85025; 85027; 87070; 87077; 87186; 87205; 93005; 93010; 94640; J0694; J1100; J1200; J1650; J1885; J1940; J2001; J2250; J2270; J2405; J2543; J2550; J2704; J2795; J3010; J3480; J3490; J7620; Q0163; Q9967; S0028

== ENCOUNTER 2021-01-10 14:15 | Inpatient (IN) | payer OTHER ==
[~2021-01-10 14:15] MED LIST changes: -ISOVUE-370 76%-LOCM 1 ML ONE; +Iopamidol-370 76% 500 ML 1 ML ONE
[2021-01-10 14:55] LABS: #Eosinphils 0.3 thou/uL (0.0-0.7); #Lymphocytes 1.3 thou/uL (1.20-3.40); #Neutrophils 5.5 thou/uL (1.40-6.50); %Basophils 0.3 % (0.0-1.0); %Eosinophils 3.9 % (0.0-10.0); %Monocytes 11.9 % (0.0-10.0); Hemoglobin 12.4 g/dL (14.0-18.0); Mean Corpuscular Volume 87.4 fL (78.0-98.0); Mean Platelet Volume 6.9 fL (7.4-10.4); Platelet Count 432 thou/uL (130-400); Red Blood Cell (RBC) Count 4.45 mill/uL (4.70-6.10); White Blood Cell (WBC) Count 8.1 thou/uL (4.8-10.8)
[2021-01-10] MEDS ORDERED: Albuterol 200 PUFF (6.7GM INHALER) ONE (15:18)
[2021-01-10 16:12] LABS: ALT (SGPT) 17 U/L (8-55); AST (SGOT) 16 U/L (5-34); Albumin 3.8 g/dL (3.5-5.0); Alkaline Phosphatase 75 U/L (40-110); Anion Gap 14 mmol/L (10-20); BUN (Urea Nitrogen) 14 mg/dL (8.9-20.6); Bilirubin, Total 0.9 mg/dL (0.2-1.2); Calc. Creatinine Clearance 0 mL/min (70-130); Calcium 9.1 mg/dL (7.8-10.44); Carbon Dioxide 22 mmol/L (22-29); Chloride 104 mmol/L (98-107); Globulin 3.4 g/dL (2.4-3.5); Glucose 97 mg/dL (70-105); Potassium 4.4 mmol/L (3.5-5.1); Protein, Total 7.2 g/dL (6.0-8.3); Sodium 136 mmol/L (136-145)
[2021-01-10 16:40] LABS: SARS-CoV-2 NAA Rapid Test Not Detected (NotDetected)
[2021-01-10] MEDS ORDERED: Acetaminophen 325 MG TAB PO PRN (17:55)
[2021-01-10] MEDS ORDERED: Aspirin 81 mg Enteric Coated Tablet PO SCH (18:00)
[2021-01-10] MEDS ORDERED: Atorvastatin Calcium 40 MG TAB PO SCH (21:00)
[2021-01-11 00:17] VITALS: BMI 36.0
[2021-01-11] MEDS ORDERED: Carvedilol 25 MG TAB PO SCH (08:00)
[2021-01-11] MEDS ORDERED: Benzonatate 100 MG CAP PO PRN (08:33)
[2021-01-11] MEDS ORDERED: Guaifenesin DM 100-10/5 ML UDCUP PO PRN (08:34)
[2021-01-11] MEDS ORDERED: NIFEdipine XL 30 MG TAB PO SCH (09:00)
[2021-01-11] MEDS ORDERED: Amoxicillin/Potassium Clav 875 MG TAB PO SCH (09:00)
[2021-01-11] MEDS ORDERED: Enoxaparin Sodium 30 MG/0.3 ML SYRINGE SC SCH (09:00)
[2021-01-11 09:50] LABS: RBC Count-Automated (BF) 32652 /cu.mm; WBC/Nucleated-Auto (BF) 4599 uL
[2021-01-11 10:06] LABS: Pleural Fluid, Protein 4.4 g/dL
[2021-01-11 10:58] LABS: BF Color Red; Body Fluid Source Thoracentesis Fluid; Clarity Cloudy/Turbid (Clear); Tube # EDTA
[2021-01-11 10:59] LABS: BF Segmented Neutrophils 75 %; Cell Count Non Hematic 17 %; Lymphocytes 8 %
[2021-01-11 11:57] VITALS: BP 104/63; TEMP 98.4
== END 2021-01-11 14:59 | disposition home or self-care (01) | DRG 205 ==
LOC: ERS 14:15 → SURG A 16:31
PROVIDERS: ADMIT Student in an Organized Health Care Education/Training Program; ATTEND Student in an Organized Health Care Education/Training Program
PROC: 0W9B3ZZ Drainage of Left Pleural Cavity, Percutaneous Approach (ICD-10-PCS; principal; 2021-01-11)
DX: J95.89 Other postprocedural complications and disorders of respiratory system, not elsewhere classified (principal); K65.9 Peritonitis, unspecified; J90 Pleural effusion, not elsewhere classified; E66.9 Obesity, unspecified; I10 Essential (primary) hypertension; E78.5 Hyperlipidemia, unspecified; Z20.822 Contact with and (suspected) exposure to COVID-19; Y83.8 Other surgical procedures as the cause of abnormal reaction of the patient, or of later complication, without mention of misadventure at the time of the procedure; Z87.891 Personal history of nicotine dependence; Z68.36 Body mass index [BMI] 36.0-36.9, adult
CPT/HCPCS: 0240U; 36415; 71045; 71275; 80053; 82150; 82945; 83605; 83615; 83880; 83986; 84155; 84157; 84478; 84484; 85025; 85060; 85379; 87070; 87116; 87205; 87206; 89051; 93005; 94760; J1642; J1650; Q9967